=== PATIENT | male | born 1965 | race Caucasian/White ===

== ENCOUNTER 2020-08-19 10:16 | Emergency (ER) | payer OTHER, SELFPAY ==
[2020-08-19] VITALS (13 sets, daily range): BP systolic 120–136; BP diastolic 73–102; PULSE 68–82; RESP 10–24; TEMP 37.2; O2SAT 93–100
--- NOTE | ~2020-08-19 | XR_ITS ---
EXAMINATION: XR chest 1V portable DATE: 08/19/2020 11:35 INDICATION: Chest pain. Syncope. TECHNIQUE: A single frontal view of the chest was obtained. COMPARISON: Chest single view 07/16/2009 FINDINGS: The chest demonstrates clear lungs without pneumonia, pleural effusion, or pneumothorax. Th e heart size is normal. IMPRESSION: 1. No acute cardiopulmonary disease. Reviewed, dictated and finalized at location A. ESSING MACHINE OPERATOR
--- NOTE | 2020-08-19 10:48 | ECG_ITS ---
Measurements Intervals [place] Rate: 73 P: 39 ID: [id number] QRS: -53 QRSD: 97 T: 50 QT: 371 QTc: 410 Interpretive Statements SINUS RHYTHM INCOMPLETE RIGHT BUNDLE BRANCH BLOCK LEFT ANTERIOR FASCICULAR BLOCK BASELINE WANDER- V1-V6 ABNORMAL ECG Electronically Signed On 08-19-2020 11:34:43 TRACK AND FIELD COACH by Mandeep Patel D.O.
[2020-08-19 10:58] LABS: Basophils Percent Auto 0.6 % (0.2-1.2); Eosinophils Absolute Auto 0.1 K/mm3 (0-0.3); Eosinophils Percent Auto 1.3 % (0-4.4); Hematocrit 51.7 % (42.0-52.0); Hemoglobin 17.5 g/dL (14.0-18.0); Immature Granulocyte Absolute 0.01 K/mm3 (0.00-0.031); Immature Granulocyte Percent A 0.2 % (0-0.5); Lymphocytes Absolute Auto 1.44 K/mm3 (0.9-3.2); Lymphocytes Percent Auto 30.4 % (18.3-44.2); Mean Corpuscular HGB Conc 33.8 g/dl (32-36); Mean Corpuscular Hemoglobin 28.9 pg (26-34); Mean Corpuscular Volume 85.5 fl (80-100); Mean Platelet Volume 10.6 fl (7.4-10.4); Monocytes Absolute Auto 0.6 K/mm3 (0.1-0.6); Neutrophils Absolute Auto 2.6 K/mm3 (1.3-6.7); Neutrophils Percent Auto 55.5 % (45.5-73.1); Platelet Count Result 152 k/mm3 (150-375); Red Blood Count 6.05 M/mm3 (4.6-6.20); Red Cell Distribution Width 13.5 % (11.5-14.5); White Blood Count 4.7 K/mm3 (4.5-10.0)
[2020-08-19 11:08] LABS: INR 0.9; Partial Thromboplastin Time 26.8 SECONDS (22.3-36.8); Prothrombin Time 13.1 Seconds (11.1-14.7)
[2020-08-19 12:16] LABS: Anion Gap 7 mmol/L (8-16); Blood Urea Nitrogen 20 mg/dL (9-20); Calcium 9.4 mg/dL (8.4-10.2); Carbon Dioxide 29 mmol/L (22-30); Chloride 101 mmol/L (98-107); Estimated CRCL calculation 87 ml/min; Estimated Glomerular Filt Rate > 60; Glucose 153 mg/dL (75-110); Potassium 3.7 mmol/L (3.4-5.0); Sodium 137 mmol/L (137-145)
[2020-08-19 12:28] LABS: Troponin I < 0.012 ng/mL (0.000-0.034)
[2020-08-19 13:05] LABS: D Dimer 0.36 ug/mL (<0.48)
[2020-08-19 13:08] LABS: Alveolar/Arterial O2 Gradient 22.5 mmHg; Base Excess ABG 0.3 mEq/l (+/-2.0); Fractional Inspired Oxygen 21 %; HCO3 ABG 22.8 mEq/l (22.0-26.0); Oxygen Content ABG 22.8 %vol (16.0-22.0); Oxygen Saturation ABG 97.4 % (95.0-100.0); PCO2 ABG 31.7 mmHg (35.0-45.0); PO2 ABG 89.3 mmHg (80.0-100.0); PO2 FiO2 Ratio Arterial Blood 4.25 %; Total Hemoglobin 16.9 g/dL (12.0-18.0); pH ABG 7.475 (7.350-7.450)
[2020-08-19 13:09] LABS: Device ROOM AIR; Modified Allen's Test Pass; Site Drawn RIGHT RADIAL
[2020-08-19 13:14] LABS: Lactate Dehydrogenase 355 U/L (313-618)
--- NOTE | 2020-08-19 13:51 | ED.DIZZY ---
HPI - Dizziness General Chief Complaint: Syncope Stated Complaint: COVID +, syncope Time Seen by Provider: 08/19/20 12:17 Source: patient Mode of arrival: ambulatory Limitations: no limitations History of Present Illness HPI Narrative: 54-year-old male In typical good health and takes no chronic medications His mom was staying with him and was diagnosed with Covid last week and is hospitalized currently He was casted Saturday well asymptomatic, began having symptoms Saturday (3 days ago), and on Saturday was informed that his Covid was positive Symptoms include poor appetite aches a mild cough and loss of taste, he has not had a high fever or severe shortness of breath On he had a dizzy spell in the shower and banged the side of his face on the shower wall His PCP advised him today to be checked out in the hospital He has not had any further of these dizzy spells Related Data Allergies Allergy/AdvReac Type Severity Reaction Status Date / Time No Known Allergies Verified 08/19/20 10:58 Review of Systems Review of Systems: All systems reviewed & are unremarkable except as noted in HPI and below Constitutional: Constitutional: Denies chills, Reports fatigue, Denies fever(s), Denies headache(s) and Reports weakness Eyes: Eyes: Reports no additional eye complaints and Denies change in vision ENT: Denies headache(s), Denies epistaxis, Denies nasal congestion and Denies sore throat Comments: Loss of taste Cardiovascular: Cardiovascular: Denies chest pain, Denies leg edema, Denies palpitations and Denies dyspnea Respiratory: Respiratory: Reports cough, Denies dyspnea and Denies wheezing Gastrointestinal: Gastrointestinal: Denies abdominal pain, Denies diarrhea, Denies nausea and Denies vomiting Comments: Poor appetite Genitourinary: Genitourinary: Denies hematuria, Denies dysuria and Denies urinary frequency Musculoskeletal: Musculoskeletal: Reports myalgias, Denies deformity, Denies arthralgias, Denies joint swelling, Denies muscle weakness and Denies numbness Integumentary/Breasts: Skin/Breast: Denies rash and Denies wounds Neurologic: Denies headache(s), Denies focal weakness, Denies numbness and Denies weakness Psychiatric: Psychiatric: Reports no additional psychiatric complaints Endocrine: Endocrine: Denies fatigue and Denies palpitations Hematologic/Lymphatic: Hematologic/Lymphatic: Denies easy bleeding and Denies easy bruising Allergic/Immunologic: Allergic/Immunologic: Denies wheezing PMFSH Family History Family History (Updated 06/04/17 @ 16:45 by DOCTOR UNKNOWN) Grandparent Diabetes mellitus Family history of lung cancer Social History Social History Smoking status: Former smoker Smoking end date: 07/22/94 Alcohol intake: current Gender identity (if verbalized by the patient): Male Exam Const: General: no acute distress, well developed and awake Nutritional Appearance: well nourished Orientation/consciousness: patient oriented x3 (alert) Limitations: no limitations HENMT: Head: normocephalic and atraumatic Ears: external ears normal General nose exam: No nasal discharge present and no epistaxis Face and sinus: face symmetric Other: Minor abrasions on the left side of his face Eyes: Conjunctivae: conjunctivae normal Sclera: sclerae normal EOM: EOMs intact bilaterally Neck: Neck: normal visual inspection, supple and no JVD Chest: Chest palpation & inspection: deferred Resp: Effort & Inspection: normal respiratory effort Auscultation: clear to auscultation bilaterally, no rales, no rhonchi, no wheezes and other (BS =) Cardio: Rate: regular rate Rhythm: regular rhythm Heart sounds: no gallops and no murmurs GI: Inspection: normal to inspection GI Palp: Yes Soft to palpation and No Tenderness to palpation present (GI) Back/Spine/Pelvis: Back: no CVA tenderness Thoracic/Lumbar Spine: thoracic and lumbar spine normal to inspection Skin: General skin e
[2020-08-19 14:21] LABS: Troponin I < 0.012 ng/mL (0.000-0.034)
== END 2020-08-19 14:11 | disposition home or self-care (01) ==
PROVIDERS: General Practice; Emergency Provider Emergency Medicine; PCP Student in an Organized Health Care Education/Training Program
DX: U07.1 COVID-19 (principal); R55 Syncope and collapse; Z87.891 Personal history of nicotine dependence; I45.2 Bifascicular block
CPT/HCPCS: 36415; 36600; 71045; 80048; 82728; 82805; 83615; 83735; 84484; 85025; 85380; 85610; 85730; 93005; 99284

== ENCOUNTER 2020-09-28 06:14 | Inpatient (IN) | payer OTHER, SELFPAY ==
[2020-09-28] VITALS (24 sets, daily range): BP systolic 104–157; BP diastolic 63–100; PULSE 57–71; RESP 11–30; TEMP 36.4–37.1; O2SAT 97–100; BMI 32.2
--- NOTE | 2020-09-28 06:29 | ECG_ITS ---
Measurements Intervals [place] Rate: 66 P: 61 [place]: 154 QRS: -34 QRSD: 85 T: 3 QT: 381 QTc: 402 Interpretive Statements SINUS RHYTHM LEFT AXIS DEVIATION DELAYED PRECORDIAL R/S TRANSITION ANTERIOR ST ELEVATION MYOCARDIAL INJURY- ACUTE HIGH LATERAL ST ELEVATION MYOCARDIAL INJURY- ACUTE BASELINE ARTIFACT- II, III, AVF ABNORMAL ECG Electronically Signed On 09-28-2020 8:12:26 PLYWOOD MATCHER by Mandeep Patel D.O.
--- NOTE | 2020-09-28 06:29 | PC.NURSE ---
aspirin 324 mg @ 626. nitro 0.4 mg @ 628
--- NOTE | 2020-09-28 06:35 | PC.NURSE ---
2nd nitro 0.4mg @ 0635, heparin 4000 mg ivp @ 0636
--- NOTE | 2020-09-28 06:38 | ED.CHESTPAIN ---
HPI - Chest Pain General Chief Complaint: Chest Pain Stated Complaint: chest pain Time Seen by Provider: 09/28/20 06:31 History of Present Illness HPI narrative: Severe crushing substernal chest pain since about midnight. Associated with SOB and right arm tingling. He has never had this pain before. He denies any medical problems and takes no medications. Triage EKG shows a STEMI. Related Data Allergies Allergy/AdvReac Type Severity Reaction Status Date / Time No Known Allergies Verified 09/28/20 07:01 Review of Systems Review of Systems: ROS unobtainable: Yes unobtainable due to medical condition Constitutional: Constitutional: Denies fever(s) Cardiovascular: Cardiovascular: Reports chest pain and Reports radiating jaw, neck or arm pain Respiratory: Respiratory: Reports dyspnea Gastrointestinal: Gastrointestinal: Denies abdominal pain Musculoskeletal: Musculoskeletal: Denies back pain [facility] Family History Family History (Updated 06/04/17 @ 16:45 by DOCTOR UNKNOWN) Grandparent Diabetes mellitus Family history of lung cancer Social History Social History Smoking status: Former smoker Smoking end date: 07/22/94 Alcohol intake: current Gender identity (if verbalized by the patient): Male Exam Const: General: alert and diaphoretic Orientation/consciousness: patient oriented x3 Other: Moderate distress HENMT: Head: normal to inspection Neck: Neck: normal visual inspection Resp: Effort & Inspection: tachypneic Auscultation: clear to auscultation bilaterally Cardio: Rate: regular rate Rhythm: regular rhythm GI: GI Palp: Yes Soft to palpation and No Tenderness to palpation present (GI) Skin: General skin exam: normal color Neuro: General: patient oriented x3 and moves all extremities Speech: normal speech Extrem: General: no edema Course Vital Signs Vital signs: Vital Signs Pulse Rate 65 09/28/20 06:20 Respiratory Rate 30 H 09/28/20 06:20 Blood Pressure 151/82 H 09/28/20 06:20 Pulse Oximetry 100 09/28/20 06:20 Pulse Rate 58 L 09/28/20 06:58 Respiratory Rate 14 09/28/20 06:58 Blood Pressure 109/73 09/28/20 06:58 Pulse Oximetry 100 09/28/20 06:58 MDM - Chest Pain Differential Diagnosis Differential diagnosis: Likely st elevation myocardial infarction Medical Records Data Attestation: I reviewed the patient's medical records. Lab Data Attestation: I reviewed the patient's lab results. Result diagrams: 09/28/20 06:45 09/28/20 06:45 ECG Data EKG #1: ECG completion date: 09/28/20 ECG completion time: 06:29 Ischemic changes: acute STEMI EKG Interpretation: normal rate, sinus rhythm, ST elevation and normal QRS Critical Care Time Critical Care Time Critical Care Time: Yes Total Critical Care Time: 30 Discharge Plan Discharge Clinical Impression: ST elevation (STEMI) myocardial infarction Qualifiers: Involved coronary artery: unspecified coronary artery Qualified Code(s): I21.3 - ST elevation (STEMI) myocardial infarction of unspecified site Patient Disposition: Still a Patient Condition: Critical
--- NOTE | 2020-09-28 06:47 | PC.NURSE ---
pt is pain free s/p 3 nitro o.4 mg
[2020-09-28 06:54] LABS: Basophils Absolute Auto 0.1 K/mm3 (0.0-0.1); Basophils Percent Auto 0.6 % (0.2-1.2); Eosinophils Percent Auto 0.2 % (0-4.4); Hematocrit 47.2 % (42.0-52.0); Hemoglobin 15.7 g/dL (14.0-18.0); Immature Granulocyte Absolute 0.08 K/mm3 (0.00-0.031); Immature Granulocyte Percent A 0.6 % (0-0.5); Lymphocytes Absolute Auto 1.94 K/mm3 (0.9-3.2); Lymphocytes Percent Auto 13.5 % (18.3-44.2); Mean Corpuscular HGB Conc 33.3 g/dl (32-36); Mean Corpuscular Hemoglobin 29.5 pg (26-34); Mean Corpuscular Volume 88.6 fl (80-100); Monocytes Absolute Auto 0.7 K/mm3 (0.1-0.6); Monocytes Percent Auto 4.9 % (2.6-8.5); Neutrophils Absolute Auto 11.5 K/mm3 (1.3-6.7); Neutrophils Percent Auto 80.2 % (45.5-73.1); Platelet Count Result 200 k/mm3 (150-375); Red Blood Count 5.33 M/mm3 (4.6-6.20); Red Cell Distribution Width 14.3 % (11.5-14.5); White Blood Count 14.3 K/mm3 (4.5-10.0)
--- NOTE | 2020-09-28 06:55 | PC.NURSE ---
metoproioi 25 mg on hold per verbal by milton hurtado, r/t v.s. p-60 r-18 bp- 129/73
--- NOTE | 2020-09-28 06:58 | PC.NURSE ---
awaiting photographic laboratory technician.
[2020-09-28 07:01] LABS: INR 0.9; Partial Thromboplastin Time 25.8 SECONDS (22.3-36.8); Prothrombin Time 12.9 Seconds (11.1-14.7)
[2020-09-28 07:03] LABS: Alanine Aminotransferase 32 U/L (4-50); Albumin Level 4.7 g/dL (3.5-5.1); Alkaline Phosphatase 46 U/L (38-126); Anion Gap 10 mmol/L (8-16); Aspartate Amino Transferase 32 U/L (17-59); Bilirubin,Total 0.5 mg/dL (0.2-1.3); Blood Urea Nitrogen 30 mg/dL (9-20); Calcium 9.7 mg/dL (8.4-10.2); Carbon Dioxide 22 mmol/L (22-30); Chloride 105 mmol/L (98-107); Cholesterol 222 mg/dL (0-200); Estimated CRCL calculation 109 ml/min; Estimated Glomerular Filt Rate > 60; Glucose 162 mg/dL (75-110); HDL Direct 52 mg/dL; Sodium 137 mmol/L (137-145); Triglycerides 96 mg/dL (<150)
[2020-09-28] MEDS: TICAGRELOR 90 MG TABLET 180 MG PO (07:07)
--- NOTE | 2020-09-28 07:08 | PC.NURSE ---
pt to analytical lab analyst via analytical lab analyst rn ,s
[2020-09-28 07:14] LABS: LDL Cholesterol Direct 139 mg/dL
[2020-09-28 07:16] LABS: Troponin I 0.137 ng/mL (0.000-0.034)
--- NOTE | 2020-09-28 08:08 | ECG_ITS ---
Measurements Intervals [place] Rate: 63 P: 63 [place]: 152 QRS: -4 QRSD: 91 T: 63 QT: 376 QTc: 386 Interpretive Statements SINUS RHYTHM NORMAL ECG Electronically Signed On 09-28-2020 9:31:59 SALES CLERK by Mandeep Patel D.O.
--- NOTE | 2020-09-28 08:15 | WPDCARDPROC ---
Cardiac Cath Procedure Note Date of procedure:: 09/28/20 Performing physician:: Chuck Horne MD Indication:: acute anterior wall infarction Brief clinical history:: this is a 54-year-old man with no previous history of heart disease presented this morning with his chest pain that began at home a short time ago. He was having some arm paresthesias and numbness for several days prior to this presentation in the emergency department his ECG was diagnostic of acute anterior wall current of injury STEMI protocol was activated and he was brought emergently to the cardiac catheterization lab in that setting. Procedure Procedure performed:: Emergency coronary angiography left ventriculography emergency percutaneous revascularization of the LAD Sedation/Medication given:: fentanyl 50 mg Versed 2 mg case start time 719 case end time 8:04 a.m. sedation provided by Kadie Bay RN, trained observer Access site:: right femoral artery Estimated blood loss:: 30-40 cc Procedure note:: patient was brought to the cardiac catheterization lab in the postabsorptive state where the right femoral triangle was prepared and draped usual fashion. Anesthesia provided with 1% lidocaine infiltrated locally. Using the modified Seldinger technique a 6 [place]an sheath was placed in. After this I used a 6 [place]an CLS 3.5 guiding catheter to engage and inject the left coronary artery. After reviewing the angiograms PCI of the LAD was recommended and carried out as detailed below. Prior to PCI the patient received a bolus and infusion of intravenous Angiomax for procedural anticoagulation. He had a ready received aspirin and a loading dose of Brilinta in the emergency department. following completion of PCI of the LAD the guiding catheter was removed and a 5 [place]an JR4 diagnostic catheter was used to engage and inject the right coronary artery. Following this a 5 [place]an angled pigtail catheter was used to place into the left ventricle, measured left ventricular hemodynamics and injected COURTNEY projection. Following this the procedure was terminated. The sheath was sutured into position was taken to the ICU for post MA/PCI recovery. Patient was in stable condition with no evidence of any procedural complications and no sign of groin hematoma. Findings:: Hemodynamics: Central aortic pressure is 120/68 left ventricle 120/11 end-diastolic pressure of 16 there is systolic gradient on pullback across the aortic valve. Left ventricle: The LV is normal in size the anterior wall is markedly hypodynamic but not akinetic the global ejection fraction is visually estimated to be at 40%. Mitral valve appears to be competent. The left main coronary artery is large caliber and widely patent the left anterior descending is a large caliber vessel extending down to the apex the LAD has a long area of proximal disease which starts with mild stenosis proximally then subtotal 99% stenosis near a 1st diagonal branch and then another subtotal 99% lesion in the midportion of the artery at the 2nd diagonal branch. There is no antegrade flow in the LAD distal to this at the start of the procedure. Circumflex is a large caliber vessel giving rise to the marginal branch is the circumflex has minimal luminal irregularities but no significant lesions are seen. Right coronary artery is large caliber and dominant to the posterior circulation. The right coronary artery has a proximal complex high-grade stenosis in the 1st portion of the vessel representing about 90% stenosis this is a complex lesion angiographically with an ulcerated appearance. Intervention: The LAD was wired using a 0.014 corporate pilot 150 coronary guidewire placed into the LAD apex after steering through both high-grade subtotal proximal lesions that are detailed above. After this I used a 2.5 x 20 mm emerge balloon to pre dilate the high-grade lesions at nominal pressures. Following this the more distal
--- NOTE | 2020-09-28 08:27 | PM.IMHP ---
H&P: HPI History of Present Illness Date/Time: 09/28/20 08:27 Chief Complaint: chest pain Narrative: Valdemar Gonzalez is a 54 year old male without any previous cardiac history who presents this morning with chest pain and ECG in the emergency room shows obvious acute anterior wall current of injury. History is very truncated as he is being prepared for emergency angiography a STEMI was declared in this setting. He states that he has had some intermittent paresthesias and some numbness in the arms for several days prior to presentation. Patient was told by his PCP in the past that he had borderline diabetes and with lifestyle and diet modification this has improved. He has never been informed of dyslipidemia or hypertension. Review of Systems Review of Systems: Narrative: No time to obtain a review of systems during this emergency ROS unobtainable: Yes unobtainable due to medical condition [facility] Family History Family History (Updated 06/04/17 @ 16:45 by DOCTOR UNKNOWN) Grandparent Diabetes mellitus Family history of lung cancer Social History Social History Smoking status: Former smoker Smoking end date: 07/22/94 Alcohol intake: current Gender identity (if verbalized by the patient): Male Meds Home Medications and Allergies Home Medications Medication Instructions Recorded Confirmed Type albuterol sulfate 4 inh INHALATION QID PRN #1 ea 08/19/20 Rx Allergies Allergy/AdvReac Type Severity Reaction Status Date / Time No Known Allergies Verified 09/28/20 07:01 Vital Signs Vital Signs - 24 hr 09/28/20 06:20 09/28/20 06:32 09/28/20 06:46 Pulse Rate 65 71 57 L Respiratory Rate 30 H 20 14 Blood Pressure 151/82 H 157/100 H 129/73 Pulse Oximetry 100 100 100 09/28/20 06:58 Pulse Rate 58 L Respiratory Rate 14 Blood Pressure 109/73 Pulse Oximetry 100 Exam Const: General: in distress and uncomfortable HENMT: Mouth: Yes moist mucous membranes Eyes: Sclera: sclerae normal Pupils: Equal, round and reactive pupils present Neck: Neck: no JVD Resp: Effort & Inspection: normal respiratory effort Auscultation: clear to auscultation bilaterally Cardio: Rate: regular rate Rhythm: regular rhythm Other: no murmur no gallop GI: GI Palp: Yes Soft to palpation Auscultation: normal bowel sounds Skin: General skin exam: normal color Neuro: Cognition (Neuro): normal cognition Extrem: General: normal to inspection H&P: Results Labs Labs: Short CBC 09/28/20 Range/Units 06:45 WBC 14.3 H (4.5-10.0) K/mm3 Hgb 15.7 (14.0-18.0) g/dL Hct 47.2 (42.0-52.0) % Plt Count 200 (150-375) k/mm3 BMP 09/28/20 06:45 Sodium 137 Potassium 4.0 Chloride 105 Carbon Dioxide 22 BUN 30 H D Creatinine 0.80 Glucose 162 H Calcium 9.7 Cardiac Enzymes 09/28/20 Range/Units 06:45 Troponin I 0.137 H* (0.000-0.034) ng/mL Liver Function 09/28/20 Range/Units 06:45 Total Bilirubin 0.5 (0.2-1.3) mg/dL AST 32 (17-59) U/L ALT 32 (4-50) U/L Alkaline Phosphatase 46 (38-126) U/L Albumin 4.7 (3.5-5.1) g/dL Assessment and Plan Additional Plan 54-year-old man with: History of borderline diabetes but no other overt cardiac history presenting this morning with chest pain and ECG evidence indicating acute anterior wall injury. Emergency angiography will now be performed and revascularization recommended based on those findings. Chuck Horne MD [facility]
--- NOTE | 2020-09-28 08:35 | ADMGEN ---
This patient, Valdemar Gonzalez, was admitted to Intensive Care Unit-8. Patient/family oriented to hospital policies and general routines including ID bracelet, bed and alarms, visiting hours, pain management, procedures, bathroom and other care routines, personal items, smoking policy, room service/diet, and visiting hours. Information on how to activate the Rapid Response Team has been discussed. Patient/Family are encouraged to report perceived risks to care and to ask questions if they do not understand what they are told or what they should do.
[2020-09-28] MEDS: SODIUM CHLORIDE 0.9% IV 1,000 ML 125 ML IV CONT (09:02)
--- NOTE | 2020-09-28 09:25 | WPDCNINT ---
Assessment and Plan Assessment and plan (1) ST elevation (STEMI) myocardial infarction: Qualifiers: Involved coronary artery: unspecified coronary artery Qualified Code(s): I21.3 - ST elevation (STEMI) myocardial infarction of unspecified site Code(s): I21.3 - ST elevation (STEMI) myocardial infarction of unspecified site Status: Acute Assessment and Plan: Patient presented with chest pain to the ER along with paresthesias and numbness to the arms a few days prior to admission In the ER EKG showed acute anterior wall MT. Patient was taken to the slab lifting supervisor for coronary angiogram status post PTCA/PCI ADAN x4 to the LAD, EF of 40%. Patient also has a high-grade complex stenosis of the proximal right coronary artery. -cardiology following the patient closely -continue aspirin, Brilinta, lisinopril, metoprolol, rosuvastatin (2) Hyperlipidemia: Code(s): E78.5 - Hyperlipidemia, unspecified Status: Acute Assessment and Plan: Continue statin as above Additional Plan Discussed with patient and his at bedside and updated them with his condition and plan of care. I answered all questions Code status: Full code Care time spent: 41 minutes This dictation may have been done utilizing a voice recognition system. Attempts have been made to correct errors. However, there may be uncorrected grammatical, spelling, and recognition errors present. Due to a high probability of clinically significant, life threatening deterioration, the patient required my highest level of preparedness to intervene emergently and I personally spent this critical care time directly and personally managing the patient. This critical care time included obtaining a history; examining the patient; pulse oximetry; ordering and review of studies; arranging urgent treatment with development of a management plan; evaluation of patient's response to treatment; frequent reassessment; and discussions with other providers. It was exclusive of separately billable procedures and treating other patients and teaching time. Please see Assessment and Plan section and the rest of the note for further information on patient assessment and treatment Director Of Casino Consult Note Consult date: 09/28/20 Time Seen: 08:55 Reason for consult: STEMI, chest pain status post PTCA/PCI with ADAN x4 to LAD, EF of 40% HPI: Valdemar Gonzalez is a 54 year old male with past medical history of borderline diabetes with lifestyle and diet modification, no previous cardiac history presented to the ED on 09/28/2020 with complains of chest pain. Patient has been having paresthesias and numbness in his arms for several days prior to presentation. In the ER EKG showed acute anterior wall MT. Patient was taken to the slab lifting supervisor for coronary angiogram status post PTCA/PCI ADAN x4 to the LAD, EF of 40%. Patient also has a high-grade complex stenosis of the proximal right coronary artery. Post procedure patient was transferred to the ICU for further management Patient seen and examined in the ICU upon arrival, patient states he feels much better, denies any chest pain, shortness of breath abdominal pain, nausea, vomiting, paresthesias or numbness in the arms. Hemodynamically stable. Patient denies any alcohol, tobacco or illicit drug use. Review of Systems Review of Systems: All systems reviewed & are unremarkable except as noted in HPI and below PMFSH Family History Family History Grandparent Diabetes mellitus Family history of lung cancer Acute myocardial infarction Social History Social History Smoking status: Former smoker Tobacco type: cigarettes Smoking end date: 07/22/94 Additional smoking assessment comments: 1 ppd quit 20 years ago Alcohol intake: never Substance use: never Gender identity (if verbalized by the patient): Male Spiritual care concerns: Yes Meds Home Medications an
[2020-09-28 09:41] LABS: Cholesterol 175 mg/dL (0-200); HDL Direct 41 mg/dL; Triglycerides 67 mg/dL (<150)
[2020-09-28 09:52] LABS: LDL Cholesterol Direct 117 mg/dL
[2020-09-28] MEDS: ROSUVASTATIN 10 MG TABLET 20 MG PO (09:57)
[2020-09-28] MEDS: METOPROLOL SUCCINATE EXT REL 50 MG TABCR PO (09:57)
[2020-09-28] MEDS: lisinopriL 5 MG TABLET PO (09:57)
[2020-09-28 10:39] LABS: Troponin I 0.861 ng/mL (0.000-0.034)
[2020-09-28] MEDS: TICAGRELOR 90 MG TABLET PO (21:20)
[2020-09-29] VITALS (14 sets, daily range): BP systolic 108–136; BP diastolic 54–93; PULSE 59–76; RESP 16–23; TEMP 36.4–36.9; O2SAT 97–100
--- NOTE | 2020-09-29 05:11 | ECG_ITS ---
Measurements Intervals [place] Rate: 65 P: 55 [place]: 147 QRS: -3 QRSD: 97 T: 113 QT: 434 QTc: 451 Interpretive Statements SINUS RHYTHM INCOMPLETE RIGHT BUNDLE BRANCH BLOCK CANNOT RULE OUT SEPTAL INFARCT, AGE INDETERMINATE T WAVE ABNORMALITY IN ANTEROLAT/HIGH LAT LEADS- CONSIDER ISCHEMIA ABNORMAL ECG Electronically Signed On 09-29-2020 9:12:21 IRON PELLET TESTER by Mandeep Patel D.O.
[2020-09-29 07:48] LABS: Basophils Absolute Auto 0.1 K/mm3 (0.0-0.1); Basophils Percent Auto 0.5 % (0.2-1.2); Eosinophils Absolute Auto 0.2 K/mm3 (0-0.3); Eosinophils Percent Auto 1.8 % (0-4.4); Hematocrit 42.3 % (42.0-52.0); Immature Granulocyte Absolute 0.02 K/mm3 (0.00-0.031); Immature Granulocyte Percent A 0.2 % (0-0.5); Lymphocytes Absolute Auto 1.82 K/mm3 (0.9-3.2); Lymphocytes Percent Auto 19.8 % (18.3-44.2); Mean Corpuscular HGB Conc 33.1 g/dl (32-36); Mean Corpuscular Volume 87.8 fl (80-100); Mean Platelet Volume 10.7 fl (7.4-10.4); Monocytes Absolute Auto 0.8 K/mm3 (0.1-0.6); Monocytes Percent Auto 8.1 % (2.6-8.5); Neutrophils Absolute Auto 6.4 K/mm3 (1.3-6.7); Neutrophils Percent Auto 69.6 % (45.5-73.1); Platelet Count Result 152 k/mm3 (150-375); Red Blood Count 4.82 M/mm3 (4.6-6.20); Red Cell Distribution Width 14.5 % (11.5-14.5); White Blood Count 9.2 K/mm3 (4.5-10.0)
[2020-09-29 08:03] LABS: Anion Gap 4 mmol/L (8-16); Blood Urea Nitrogen 17 mg/dL (9-20); Calcium 8.6 mg/dL (8.4-10.2); Carbon Dioxide 26 mmol/L (22-30); Chloride 107 mmol/L (98-107); Estimated CRCL calculation 108 ml/min; Estimated Glomerular Filt Rate > 60; Glucose 114 mg/dL (75-110); Sodium 137 mmol/L (137-145)
[2020-09-29] MEDS: METOPROLOL SUCCINATE EXT REL 50 MG TABCR PO (08:38)
[2020-09-29] MEDS: TICAGRELOR 90 MG TABLET PO ×2 (08:38→19:42)
[2020-09-29] MEDS: ASPIRIN 81 MG CHEWABLE TABLET PO (08:38)
[2020-09-29] MEDS: ROSUVASTATIN 10 MG TABLET 20 MG PO (08:38)
[2020-09-29] MEDS: lisinopriL 5 MG TABLET PO (08:38)
--- NOTE | 2020-09-29 09:42 | WPDINTPN ---
Progress Note: A&P Assessment and Plan (1) ST elevation (STEMI) myocardial infarction: Qualifiers: Involved coronary artery: unspecified coronary artery Qualified Code(s): I21.3 - ST elevation (STEMI) myocardial infarction of unspecified site Code(s): I21.3 - ST elevation (STEMI) myocardial infarction of unspecified site Status: Acute Assessment and Plan: Patient presented with chest pain to the ER along with paresthesias and numbness to the arms a few days prior to admission In the ER EKG showed acute anterior wall [place]. Patient was taken to the packing house laborer for coronary angiogram status post PTCA/PCI ADAN x4 to the LAD, EF of 40%. Patient also has a high-grade complex stenosis of the proximal right coronary artery. -cardiology following the patient closely -PVCs overnight and 3 on beat of V-tach while reviewing telemetry it -continue aspirin, Brilinta, lisinopril, metoprolol, rosuvastatin (2) Hyperlipidemia: Code(s): E78.5 - Hyperlipidemia, unspecified Status: Acute Assessment and Plan: Continue statin as above Additional Plan Discussed with patient updated with his condition and plan of care. He is aware that he may be out of the ICU today. Code status: Full code Care time spent: 31 minutes This dictation may have been done utilizing a voice recognition system. Attempts have been made to correct errors. However, there may be uncorrected grammatical, spelling, and recognition errors present. Due to a high probability of clinically significant, life threatening deterioration, the patient required my highest level of preparedness to intervene emergently and I personally spent this critical care time directly and personally managing the patient. This critical care time included obtaining a history; examining the patient; pulse oximetry; ordering and review of studies; arranging urgent treatment with development of a management plan; evaluation of patient's response to treatment; frequent reassessment; and discussions with other providers. It was exclusive of separately billable procedures and treating other patients and teaching time. Please see Assessment and Plan section and the rest of the note for further information on patient assessment and treatment Subjective Date/time seen: 09/29/20 09:42 Interval history: Reason for consult: STEMI, chest pain status post PTCA/PCI with ADAN x4 to LAD, EF of 40% 09/29/2020: Patient seen examined this morning, denies any chest pain, shortness of breath, nausea, vomiting, diaphoresis. Patient states he is feels much better. PVCs overnight with a 3 beat run of V-tach on that review of telemetry. Patient otherwise asymptomatic. Tolerating diet, hemodynamically stable, on room air with good O2 sats. Output has been added Review of Systems Review of Systems: All systems reviewed & are unremarkable except as noted in HPI and below Exam Const: General: comfortable and no acute distress HENMT: Mouth: Yes moist mucous membranes Eyes: Sclera: sclerae normal Pupils: Equal, round and reactive pupils present Neck: Neck: supple Resp: Effort & Inspection: normal respiratory effort Auscultation: clear to auscultation bilaterally Cardio: Rate: regular rate Rhythm: regular rhythm GI: Inspection: non-distended GI Palp: Yes Soft to palpation and No Tenderness to palpation present (GI) Auscultation: normal bowel sounds : Other: Deferred Urinary Catheter: Urinary Catheter: urine clear Skin: General skin exam: normal color and no rashes or lesions noted Neuro: Cranial nerves: Yes Equal, round and reactive pupils present Other: Patient is awake, alert, oriented x3, nonfocal Extrem: General: normal to inspection, no edema and no pedal edema Other: Right groin site without any evidence of ecchymosis or hematoma. Normal pedal pulses bilaterally Psych: Mental Status: mental status grossly normal Affect: normal affect Objective Data Vital S
--- NOTE | 2020-09-29 10:45 | PM.PNCARD ---
Progress Note: A&P Assessment and Plan (1) ST elevation (STEMI) myocardial infarction: Qualifiers: Involved coronary artery: unspecified coronary artery Qualified Code(s): I21.3 - ST elevation (STEMI) myocardial infarction of unspecified site Code(s): I21.3 - ST elevation (STEMI) myocardial infarction of unspecified site Status: Acute Assessment and Plan: Continue dual anti-platelet therapy, beta-gerald, BAILEY-inhibitor, statin Plan for outpatient staged intervention of the proximal RCA (2) Hyperlipidemia: Code(s): E78.5 - Hyperlipidemia, unspecified Status: Acute Assessment and Plan: Will increase rosuvastatin at 20 mg daily (3) Borderline diabetes: Code(s): R73.03 - Prediabetes Status: Acute (4) Ischemic cardiomyopathy: Code(s): I25.5 - Ischemic cardiomyopathy Status: Acute Assessment and Plan: Hopefully will improve further following complete revascularization and with improvement stunned myocardium Subjective Date/time seen: 09/29/20 10:45 Interval history: Reason for consult: STEMI, chest pain status post PTCA/PCI with ADAN x4 to LAD, EF of 40% 09/29/2020: Patient seen examined this morning, denies any chest pain, shortness of breath, nausea, vomiting, diaphoresis. Patient states he is feels much better. PVCs overnight with a 3 beat run of V-tach on that review of telemetry. Patient otherwise asymptomatic. Tolerating diet, hemodynamically stable, on room air with good O2 sats. Output has been added Review of Systems Review of Systems: All systems reviewed & are unremarkable except as noted in HPI and below Constitutional: Constitutional: Denies weakness Eyes: Eyes: Denies blurry vision ENT: Reports Normal hearing present Cardiovascular: Cardiovascular: Denies chest pain Respiratory: Respiratory: Denies dyspnea Gastrointestinal: Gastrointestinal: Denies abdominal pain Genitourinary: Genitourinary: Denies dysuria Musculoskeletal: Musculoskeletal: Denies neck pain Integumentary/Breasts: Skin/Breast: Denies dry skin Neurologic: Denies headache(s) Psychiatric: Psychiatric: Denies anxiety Endocrine: Endocrine: Denies change in body appearance Hematologic/Lymphatic: Hematologic/Lymphatic: Denies easy bleeding Allergic/Immunologic: Allergic/Immunologic: Denies GI upset with certain foods Exam Narrative: Exam Narrative: Alert oriented. Appears stated age Const: General: comfortable and no acute distress HENID: Mouth: Yes moist mucous membranes Eyes: Sclera: sclerae normal Neck: Neck: no JVD Resp: Effort & Inspection: normal respiratory effort Auscultation: clear to auscultation bilaterally Cardio: Rate: regular rate Rhythm: regular rhythm GI: Auscultation: normal bowel sounds Skin: General skin exam: normal color Other: Right groin is free of hematoma ecchymosis or bruit Neuro: Cranial nerves: Yes Equal, round and reactive pupils present Cognition (Neuro): normal cognition Speech: normal speech Extrem: General: normal to inspection Psych: Affect: normal affect Objective Data Vital Signs Vital Signs: Vital Signs - 24 hr 09/28/20 12:00 09/28/20 12:35 09/28/20 12:50 Temperature Pulse Rate 61 61 62 Respiratory Rate 11 L 11 L 12 Blood Pressure 108/77 109/76 106/69 Pulse Oximetry 99 99 98 09/28/20 13:20 09/28/20 13:50 09/28/20 14:00 Temperature Pulse Rate 61 63 60 Respiratory Rate 19 17 Blood Pressure 115/70 111/78 Pulse Oximetry 98 99 09/28/20 14:20 09/28/20 14:50 09/28/20 15:50 Temperature Pulse Rate 63 65 64 Respiratory Rate 18 19 16 Blood Pressure 107/68 112/71 114/72 Pulse Oximetry 98 97 97 09/28/20 16:00 09/28/20 16:50 09/28/20 17:50 Temperature 37.1 C Pulse Rate 64 66 65 Respiratory Rate 17 18 15 Blood Pressure 111/72 104/70 110/63 Pulse Oximetry 97 98 97 09/28/20 18:00 09/28/20 20:00 09/28/20 22:00 Temperature 36.4 C L Pulse Rat
[2020-09-30] VITALS (10 sets, daily range): BP systolic 108–126; BP diastolic 74–84; PULSE 56–65; RESP 14–20; TEMP 36.3–36.9; O2SAT 99
[2020-09-30 07:55] LABS: Hematocrit 45.7 % (42.0-52.0); Hemoglobin 15.6 g/dL (14.0-18.0); Mean Corpuscular HGB Conc 34.1 g/dl (32-36); Mean Corpuscular Hemoglobin 29.7 pg (26-34); Mean Corpuscular Volume 86.9 fl (80-100); Mean Platelet Volume 10.7 fl (7.4-10.4); Platelet Count Result 160 k/mm3 (150-375); Red Blood Count 5.26 M/mm3 (4.6-6.20); White Blood Count 9.1 K/mm3 (4.5-10.0)
[2020-09-30] MEDS: ROSUVASTATIN 10 MG TABLET 20 MG PO (08:08)
[2020-09-30] MEDS: lisinopriL 5 MG TABLET PO (08:09)
[2020-09-30] MEDS: METOPROLOL SUCCINATE EXT REL 50 MG TABCR PO (08:09)
[2020-09-30] MEDS: ASPIRIN 81 MG CHEWABLE TABLET PO (08:09)
[2020-09-30] MEDS: TICAGRELOR 90 MG TABLET PO (08:09)
[2020-09-30 08:10] LABS: Alanine Aminotransferase 37 U/L (4-50); Albumin Level 4.1 g/dL (3.5-5.1); Alkaline Phosphatase 34 U/L (38-126); Anion Gap 7 mmol/L (8-16); Aspartate Amino Transferase 41 U/L (17-59); Bilirubin,Total 0.6 mg/dL (0.2-1.3); Blood Urea Nitrogen 18 mg/dL (9-20); Calcium 9.3 mg/dL (8.4-10.2); Carbon Dioxide 27 mmol/L (22-30); Chloride 104 mmol/L (98-107); Estimated CRCL calculation 94 ml/min; Estimated Glomerular Filt Rate > 60; Glucose 103 mg/dL (75-110); Potassium 3.9 mmol/L (3.4-5.0); Sodium 138 mmol/L (137-145)
--- NOTE | 2020-09-30 14:06 | PM.DS ---
DS: Admitting Diagnosis Admitting Diagnosis Admitting Diagnosis: Anterior wall ST-elevation IN DS: Discharge Diagnosis Discharge Diagnosis (1) ST elevation (STEMI) myocardial infarction: Qualifiers: Involved coronary artery: unspecified coronary artery Qualified Code(s): I21.3 - ST elevation (STEMI) myocardial infarction of unspecified site Code(s): I21.3 - ST elevation (STEMI) myocardial infarction of unspecified site Status: Acute DS: Summary Hospital Course Reason for hospitalization: Anterior wall infarction Hospital Course: This is a 54-year-old man without previous history of cardiac problems who presented to the hospital with acute chest pain. ECG demonstrated acute injury to the anterolateral wall and he was brought emergently to the cardiac cath lab radiological technologist. Patient underwent emergency angiography identifying high-grade subtotal stenosis of the LAD proximally and in the midportion. Between nose high-grade lesions the LAD was moderately diffusely disease. He underwent angiographically successful but somewhat complex intervention because of the long area of the vessel that had to be treated with stents of different sizes. He received 4 drug-eluting stents from the midportion back to the proximal/near ostial segment of the LAD with a nice anatomical result. A small proximal small to medium-sized diagonal branch was jailed by that intervention. The patient rapidly became asymptomatic following revascularization. He has anterior wall hypokinesia overall ejection fraction appears to be about 40%. His right coronary artery also was found to have a high-grade proximal complex stenosis of 80-90% and does require revascularization in a staged fashion. Today the patient appears to be a good candidate for discharge he is asymptomatic ambulating there is no complaints he is being discharged with plans to follow up in the office and then to schedule elective PCI on his RCA. Status at Discharge Functional status at discharge: independent ambulation Time Spent with Patient Time attestation: Total time spent providing and/or coordinating discharge services: Exam Const: General: comfortable and no acute distress HENMT: Mouth: Yes moist mucous membranes Eyes: Sclera: sclerae normal Pupils: Equal, round and reactive pupils present Neck: Neck: supple and no JVD Thyroid: thyroid normal Resp: Effort & Inspection: normal respiratory effort Auscultation: clear to auscultation bilaterally Cardio: Rate: regular rate Rhythm: regular rhythm Other: No murmur no gallop GI: GI Palp: Yes Soft to palpation Auscultation: normal bowel sounds Skin: General skin exam: normal color Extrem: General: normal to inspection DS: Data Data Completed and Pending Labs on day of discharge: Labs from last 24 hours 09/30/20 09/30/20 07:50 07:50 WBC 9.1 RBC 5.26 Hgb 15.6 Hct 45.7 MCV 86.9 MCH 29.7 MCHC 34.1 RDW 14.0 Plt Count 160 MPV 10.7 H Sodium 138 Potassium 3.9 Chloride 104 Carbon Dioxide 27 Anion Gap 7 L BUN 18 Creatinine 0.80 Estim Creat Clear Calc 94 Estimated GFR > 60 Glucose 103 Calcium 9.3 Magnesium 2.0 Total Bilirubin 0.6 AST 41 ALT 37 Alkaline Phosphatase 34 L Total Protein 7.0 Albumin 4.1 Discharge Plan Discharge Attending physician on discharge: Chuck Horne Consulting providers: Iesha Ramirez Discharging Clinician: Chuck Horne Anticipated Discharge Date/Time: 09/30/20 14:10 Patient Disposition: Home, Self-Care Activity: other - see discharge instructions Diet: heart healthy Wound Care Instructions: other - see discharge instructions Discharge Instructions: Activity Restrictions: No lifting, pushing or pulling more than 10 pounds for 1 week. No strenuous exercise or activity (including sexual activity) until you are released to do so. May shower but no tub baths or swimming pool for 1 wee
== END 2020-09-30 15:45 | disposition home or self-care (01) | DRG 246 ==
LOC: ANHED 06:42 → ANHICU 06:44
PROVIDERS: Internal Medicine Cardiovascular Disease; Admitting Provider Specialist; Emergency Provider Emergency Medicine; PCP Student in an Organized Health Care Education/Training Program; Visit Provider Specialist
PROC: 4A023N7 Measurement of Cardiac Sampling and Pressure, Left Heart, Percutaneous Approach (ICD-10-PCS; CPT 93452; principal; 2020-09-28 07:00)
PROC: 027037Z Dilation of Coronary Artery, One Artery with Four or More Drug-eluting Intraluminal Devices, Percutaneous Approach (ICD-10-PCS; 2020-09-28 07:00)
DX: I21.02 ST elevation (STEMI) myocardial infarction involving left anterior descending coronary artery (principal); E78.5 Hyperlipidemia, unspecified; R73.03 Prediabetes; I25.5 Ischemic cardiomyopathy; Z23 Encounter for immunization; Z95.5 Presence of coronary angioplasty implant and graft; Z87.891 Personal history of nicotine dependence
CPT/HCPCS: 36415; 80048; 80053; 80061; 83735; 84484; 85025; 85027; 85610; 85730; 86850; 86900; 86901; 90471; 90653; 93005; 93458; 99285; A9270; C1725; C1769; C1874; C1887; C1894; C9606; G0008; J0583; J1644; J2250; J3010; J7030; J7040

== ENCOUNTER 2020-10-11 18:01 | Inpatient (IN) | payer OTHER, SELFPAY ==
--- NOTE | ~2020-10-11 | US_ITS ---
EXAMINATION: US carotid duplex BI DATE: 10/12/2020 09:56 INDICATION: Acute seizure TECHNIQUE: Grayscale, color Doppler, and pulsed Doppler images of the cervical carotid arteries were obtained. The degree of vessel stenosis is placed in one of the following categories: normal, <50%, 5 0-69%, >=70% but less than near-occlusion, near-occlusion, or total occlusion. Note that percent sten osis relative to normal distal artery lumen diameter is indirectly measured from velocity measurement s as described by Adal, et al. Radiology 2003; 229:340-346. Notes: Normal: Peak systolic velocity <125 centimeters/sec and no plaque <50%. Peak systolic velocity <125 ( EDV <40; ICA/CCA PSV ratio <2.0; used these factors only a tandem lesions or low cardiac output or co ntralateral disease) 50-69 %: PSV 125-230 (EDV 40-100; ratio 2-4) >= 70% but less than near occlusion: PSV greater than 230 (EDV > 100; ratio> 4.0) Near Occlusion: PSV that is variable; markedly narrowed lumen Occlusion: Absent flow on color/spectral Doppler and no lumen on stevens scale. COMPARISON: None. FINDINGS: RIGHT: The right common carotid artery (CCA) peak systolic velocity (PSV) is 81 cm/s. The right internal car otid artery (ICA) PSV is 69 cm/s. The right ICA end-diastolic velocity (EDV) is 22 cm/s. The right IC A/CCA PSV ratio is 0.8. The external carotid artery (ECA) PSV is 96 cm/s. There is antegrade flow in the right vertebral artery. LEFT: The left CCA PSV is 100 cm/s. The left ICA PSV is 79 cm/s. The left ICA EDV is 24 cm/s. The left ICA/ CCA PSV ratio is 0.8. The ECA PSV is 98 cm/s. There is antegrade flow in the left vertebral artery. IMPRESSION: 1. Less than 50% stenosis in the right internal carotid artery by sonographic criteria. 2. Less than 50% stenosis in the left internal carotid artery by sonographic criteria. Reviewed, dictated and finalized at location A. IMPRESSION: 1. Less than 50% stenosis in the right internal carotid artery by sonographic zhane emerson. 2. Less than 50% stenosis in the left internal carotid artery by sonographic alexandra kaur.
--- NOTE | ~2020-10-11 | CT_ITS ---
EXAMINATION: CT brain wo con EXAM DATE: 10/11/2020 19:42 INDICATION: Syncope. TECHNIQUE: Spiral CT of the head was performed without contrast. Axial, coronal and sagittal images were reviewed. The dose-length product (DLP) for this examination was 605.33 mGy-cm. The exposure w as tailored according to patient size, and iterative reconstruction (ASIR) was used as additional dos e reduction technique. There is no prior study for comparison. FINDINGS: There is no acute intraparenchymal hemorrhage. No evidence of intraparenchymal brain mass lesion. No evidence of acute infarction. There is no mass effect or midline shift. The ventricles are normal in size. There are no extra-axial collections. There are no acute calvarial fractures. T he orbits are unremarkable. Soft tissue is unremarkable. The visualized sinuses and mastoid air matt ls are well aerated. IMPRESSION: 1. Unremarkable head CT examination. Reviewed, dictated and finalized at location A.
--- NOTE | 2020-10-11 18:02 | ECG_ITS ---
Measurements Intervals Universal Rate: 55 P: 64 IA: 148 QRS: 58 QRSD: 93 T: 99 QT: 463 QTc: 447 Interpretive Statements SINUS BRADYCARDIA CANNOT RULE OUT SEPTAL INFARCT, AGE INDETERMINATE T WAVE ABNORMALITY IN ANT/HIGH LAT LEADS- CONSIDER ISCHEMIA ABNORMAL ECG Electronically Signed On 10-11-2020 19:43:39 CDT by Mandeep Patel D.O.
[2020-10-11 18:19] VITALS: BP 73/39; PULSE 55; RESP 18; TEMP 36.4; O2SAT 100
[2020-10-11 18:22] VITALS: BP 89/54; PULSE 55; RESP 15; O2SAT 100
[2020-10-11 18:31] LABS: Glucose Point of Care 162 (65-105)
--- NOTE | 2020-10-11 18:35 | PC.NURSE ---
unable to get orthostatic VS at this time due to pts low blood pressure lying.
[2020-10-11 18:38] LABS: Basophils Absolute Auto 0.1 K/mm3 (0.0-0.1); Basophils Percent Auto 0.9 % (0.2-1.2); Eosinophils Absolute Auto 0.2 K/mm3 (0-0.3); Eosinophils Percent Auto 2.3 % (0-4.4); Hematocrit 40.7 % (42.0-52.0); Hemoglobin 13.7 g/dL (14.0-18.0); Immature Granulocyte Absolute 0.02 K/mm3 (0.00-0.031); Immature Granulocyte Percent A 0.2 % (0-0.5); Lymphocytes Absolute Auto 1.48 K/mm3 (0.9-3.2); Lymphocytes Percent Auto 16.4 % (18.3-44.2); Mean Corpuscular HGB Conc 33.7 g/dl (32-36); Mean Corpuscular Hemoglobin 29.4 pg (26-34); Mean Corpuscular Volume 87.3 fl (80-100); Mean Platelet Volume 10.7 fl (7.4-10.4); Monocytes Absolute Auto 0.7 K/mm3 (0.1-0.6); Neutrophils Absolute Auto 6.5 K/mm3 (1.3-6.7); Neutrophils Percent Auto 72.2 % (45.5-73.1); Platelet Count Result 220 k/mm3 (150-375); Red Blood Count 4.66 M/mm3 (4.6-6.20); Red Cell Distribution Width 13.2 % (11.5-14.5)
[2020-10-11] MEDS: SODIUM CHLORIDE 0.9% IV 1,000 ML 999 ML IV CONT ×3 (18:38→20:53)
[2020-10-11 18:56] LABS: Anion Gap 4 mmol/L (8-16); Blood Urea Nitrogen 19 mg/dL (9-20); Calcium 8.7 mg/dL (8.4-10.2); Carbon Dioxide 29 mmol/L (22-30); Chloride 103 mmol/L (98-107); Estimated CRCL calculation 78 ml/min; Estimated Glomerular Filt Rate > 60; Glucose 183 mg/dL (75-110); Sodium 136 mmol/L (137-145)
[2020-10-11 19:03] LABS: Troponin I < 0.012 ng/mL (0.000-0.034)
--- NOTE | 2020-10-11 19:03 | ED.GENADULT ---
HPI - General Adult General Chief complaint: Syncope Stated complaint: dizzy, syncope Time Seen by Provider: 10/11/20 18:39 Source: patient History of Present Illness HPI narrative: Patient is a 54 y/o male complaining of dizziness and passing out approximately 1 hour ago. He states that he was with friend in a car. He states that his friend told him he was passed out for 2 minutes. He had some shaking episode and his friend thought he was possibly having a seizure. He has no recollection of what happened. He still feels dizzy. He denies any chest pain or SOB. Of note, he had cardiac cath with stent for acute AK approximately 2 weeks ago. Related Data Allergies Allergy/AdvReac Type Severity Reaction Status Date / Time No Known Allergies Verified 10/11/20 22:37 Review of Systems Constitutional: Constitutional: Denies chills, Denies fever(s), Denies headache(s) and Denies weakness Eyes: Eyes: Denies blurry vision ENT: Denies headache(s) and Denies neck pain Cardiovascular: Cardiovascular: Denies chest pain and Denies dyspnea Respiratory: Respiratory: Denies cough and Denies dyspnea Gastrointestinal: Gastrointestinal: Denies abdominal pain, Denies diarrhea, Denies nausea and Denies vomiting Genitourinary: Genitourinary: Denies hematuria and Denies dysuria Musculoskeletal: Musculoskeletal: Denies back pain and Denies neck pain Neurologic: Reports dizziness, Reports syncope, Denies headache(s) and Denies weakness PMFSH Past Medical History Medical History Coronary artery disease Hyperlipidemia Hypertension Surgical History Surgical History Stented coronary artery Family History Family History Grandparent Diabetes mellitus Family history of lung cancer Acute myocardial infarction Social History Social History Smoking packs per day: 1 Smoking cigarettes per day: 20.0 Smoking status: Former smoker Tobacco type: cigarettes Additional smoking assessment comments: 1 ppd quit 25 years ago Alcohol intake: former Drinks per week: 18 Substance use: never Gender identity (if verbalized by the patient): Male Spiritual care concerns: No Exam Const: General: no acute distress and well developed Orientation/consciousness: oriented to person, oriented to place, oriented to time and patient oriented x3 HENMT: Head: normocephalic Ears: external ears normal General nose exam: Normal external nose present Eyes: General: appearance normal, both eyes and all related structures Conjunctivae: conjunctivae normal Neck: Neck: normal visual inspection and full ROM Chest: Chest palpation & inspection: normal inspection of the chest and no tenderness Resp: Effort & Inspection: normal respiratory effort Auscultation: clear to auscultation bilaterally Cardio: Rate: regular rate Rhythm: regular rhythm GI: GI Palp: No abdominal tenderness and Yes Soft to palpation Skin: General skin exam: normal color and turgor normal Neuro: General: oriented to person, oriented to place, oriented to time and patient oriented x3 Cognition (Neuro): normal cognition Extrem: General: normal to inspection, full ROM and no pedal edema Psych: Appearance: grossly normal Mental Status: mental status grossly normal Affect: normal affect Course Consultations Consultation #1: Discussed with Dr. Escobar, who agrees to admit. Date: 10/11/20 Time: 20:10 Vital Signs Vital signs: Vital Signs Temperature 36.4 C L 10/11/20 18:19 Pulse Rate 55 L 10/11/20 18:19 Respiratory Rate 18 10/11/20 18:19 Blood Pressure 73/39 L 10/11/20 18:19 Pulse Oximetry 100 10/11/20 18:19 Temperature 36.6 C 10/15/20 08:00 Pulse Rate 65 10/15/20 10:00 Respiratory Rate 14 10/15/20 08:00 Blood Pressure 127/68 10/15/20 08
--- NOTE | 2020-10-11 19:29 | PC.NURSE ---
Pt presents to ED with for syncopal episode. Pt denies falling and hitting head with syncope. Pt resting on cart in supine position and has complaints of persistent dizziness. Pt noted with hypotension; EDMD ordered liter of 0.9 NS that is now infusing. Pt placed in trendelenburg position due to persistent hypotension. remains at bedside. Pt and updated on poc; all questions and concerns addressed. Call button and personal items within reach. Advised to press call button for assistance.
[2020-10-11 19:33] VITALS: BP 90/57; PULSE 66; RESP 16; O2SAT 98
--- NOTE | 2020-10-11 19:35 | PC.NURSE ---
Pt to CT via cart.
--- NOTE | 2020-10-11 21:18 | PC.NURSE ---
SBAR faxed. Pt remains in trendelenburg position due to persistent hypotension. remains at bedside. Pt is otherwise stable and denies chest pain, sob and all other discomfort at this time. Advised to press call button for assistance. Provided ice water per ok from EDMD.
[2020-10-11 21:20] VITALS: BP 102/53; PULSE 81; RESP 17; O2SAT 99
--- NOTE | 2020-10-11 21:41 | PC.NURSE ---
Pt provided a urinal. Pt is now removed from trendelenburg position is is tolerating well and BP is now 106/95. Pt noted to now be in bigeminal rhythm; EDMD notified and no orders given at this time. remains at bedside. Pt aware of poc and all questions and concerns addressed.
--- NOTE | 2020-10-11 21:53 | PC.NURSE ---
Report called to Ashley. Glynn to send pt to floor.
--- NOTE | 2020-10-11 22:33 | ADMGEN ---
This patient, Valdemar Gonzalez, was admitted to Medical Room 344-01. Patient/family oriented to hospital policies and general routines including ID bracelet, bed and alarms, visiting hours, pain management, procedures, bathroom and other care routines, personal items, smoking policy, room service/diet, and visiting hours. Information on how to activate the Rapid Response Team has been discussed. Patient/Family are encouraged to report perceived risks to care and to ask questions if they do not understand what they are told or what they should do.
[2020-10-11 22:49] VITALS: BMI 31.4
[2020-10-11 22:50] VITALS: BP 116/62; PULSE 91; RESP 17; TEMP 36.3; O2SAT 99
[2020-10-11 23:41] LABS: Add Urine Microscopic? YES; Appearance Urine Clear (Clear); Bilirubin Urine Negative (Negative); Blood Urine Negative (Negative); Color Urine Straw (Yellow); Glucose Urine UA 1+ mg/dL (Negative); Ketones Urine Negative (Negative); Leukocyte Esterase Ur Negative LEU/UL (Negative); Mucus Urine Rare /lpf; Nitrate Urine Negative (Negative); Protein Urine Negative (Negative); Specific Grav Ur 1.005 (1.001-1.035); Urobilinogen Urine Negative mg/dL (<2.0); WBC Urine 0-3 /hpf
--- NOTE | 2020-10-11 23:41 | PM.IMHP ---
H&P: HPI History of Present Illness Date/Time: 10/11/20 23:41 Chief Complaint: Unresponsive Event Narrative: This is a pleasant 54-year-old male with known history of coronary artery disease status post recent stent placement, hypertension, hyperlipidemia who presented to the hospital after having an unresponsive episode today in his friend's car. Apparently the patient had just finished eating lunch with his friend and they were driving when suddenly the patient felt strange and told his friend that he was not feeling well. Before becoming unresponsive the patient did feel somewhat short of breath although he denies any chest pain. The patient passed out for approximately 2 minutes and during that time his friend witnessed him having generalized shaking. The patient did lose urine and completely wet his pants. He denies any tongue biting. The patient has never had an acute seizure before. The patient was confused for approximately 5 minutes following the episode before he regained his senses. He denies any type of chest discomfort or palpitations before during or after the episode today. The patient also denies any recent head trauma. He was evaluated emergency room today and found to be hypotensive. ER provider gave him 3 L of IV fluids which have helped with his blood pressure. The patient has been taking his medications as prescribed. He denies stopping any medications recently. On further questioning he also denies any fever, chills, nausea, vomiting, chest pain, sore throat, coughing, significant shortness of breath, abdominal pain, dysuria, hematuria, diarrhea, rectal bleeding, or lower extremity swelling. On my encounter with the patient tonight he is completely asymptomatic and tells me he feels like he is back to his normal self. No other complaints at this time. Brain CT was performed in the ER was unremarkable for any acute pathology. Review of Systems Review of Systems: All systems reviewed & are unremarkable except as noted in HPI and below PMFSH Past Medical History Medical History (Updated 10/11/20 @ 23:55 by Holland Escobar MD) Coronary artery disease Hyperlipidemia Hypertension Surgical History Surgical History (Updated 10/11/20 @ 23:49 by Holland Escobar MD) Stented coronary artery Family History Family History Grandparent Diabetes mellitus Family history of lung cancer Acute myocardial infarction Social History Social History (Updated 10/11/20 @ 22:50 by Kenyetta Aguirre RN) Smoking packs per day: 1 Smoking cigarettes per day: 20.0 Smoking status: Former smoker Tobacco type: cigarettes Additional smoking assessment comments: 1 ppd quit 25 years ago Alcohol intake: former Drinks per week: 18 Substance use: never Living arrangements: with family Gender identity (if verbalized by the patient): Male Spiritual care concerns: No Meds Home Medications and Allergies Home Medications Medication Instructions Recorded Confirmed Type aspirin [Children's Aspirin] 81 mg PO DAILY@0800 #30 tablet 09/30/20 10/11/20 Rx lisinopril 5 mg PO DAILY #30 tablet 09/30/20 10/11/20 Rx metoprolol succinate 50 mg PO QAM #30 tablet 09/30/20 10/11/20 Rx nitroglycerin [Nitrostat] 0.4 mg SUBLINGUAL Q5MIN PRN #30 09/30/20 10/11/20 Rx tablet rosuvastatin [Crestor] 20 mg PO DAILY #30 tablet 09/30/20 10/11/20 Rx ticagrelor [Brilinta] 90 mg PO Q12HR #60 tablet 09/30/20 10/11/20 Rx Allergies Allergy/AdvReac Type Severity Reaction Status Date / Time No Known Allergies Verified 10/11/20 22:37 Vital Signs Vital Signs - 24 hr 10/11/20 18:19 10/11/20 18:22 10/11/20 19:33 Temperature 36.4 C L Pulse Rate 55 L 55 L 66 Respiratory Rate 18 15 16 Blood Pressure 73/39 L 89/54 L 90/57 L Pulse Oximetry 100 100 98 10/11/20 21:20 10/11/20 22:50 Temperature 36.3 C L Pulse Rate 81 91 Respiratory Rate 17 17 Blood Pressure 1
[2020-10-11 23:53] LABS: Amphetamine Screen Urine Negative (Negative); Barbiturate Screen Urine Negative (Negative); Benzodiazepines Screen Urine Negative (Negative); Cannabinoid Screen Urine Positive (Negative); Cocaine Screen Urine Negative (Negative); Methadone Screen Urine Negative (Negative); Opiate Screen Urine Negative (Negative); Phencyclidine Screen Urine Negative (Negative)
[2020-10-12] VITALS (10 sets, daily range): BP systolic 101–123; BP diastolic 64–74; PULSE 56–90; RESP 14–17; TEMP 36.1–36.6; O2SAT 98–100
--- NOTE | 2020-10-12 | ECHO_ITS ---
Patient Info Name: Valdemar Gonzalez Age: 54 years : 1965 Gender: Male Ht: 69 in Wt: 212 lbs BSA: 2.19 m2 HR: 68 bpm BP: 114 / 72 mmHg Heart Rhythm: Sinus Rhythm Technical Quality: Good Exam Date: 10/12/2020 1:49 PM Exam Location: [facility] Pulmonary Patient Status: Outpatient Admit Date: 10/11/2020 Staff Ordering Physician: Chuck Horne MD Program Review Director: Camden Conde RDCS, RT Attending Provider: Jacklyn Hong PA-C Referring Physician: Ozzie PIERCE; Exam Type: CA echo limited w contrast Study Info Indications I21.29 - ST elevation (STEMI) myocardial infarction involving other sites Limited two-dimensional transthoracic echocardiogram is performed. Strain analysis performed. Contrast/Agitated Saline Contrast/Ag. Saline: Definity Amount: 1.00 ml Administered By: Iris Mcarthur RN Summary 1. Normal left ventricular size with mild concentric hypertrophy. No segmental wall motion abnormalities. The calculated ejection fraction is 60 7% and visually it appears good, 65-70%. Global longitudinal strain was normal at-18%. 2. Left atrial chamber dimension is mildly enlarged. 3. No pulmonary hypertension, estimated pulmonary arterial systolic pressure is 33 mmHg. 4. Dilated inferior vena cava with >50% collapse upon inspiration consistent with elevated right atrial pressure, 10 mmHg. 5. No significant valve disease. 6. Normal sinus rhythm with PVCs. Left Ventricle Left ventricular chamber dimension is normal. Left ventricular systolic function is normal, estimated at 65-70%. There is mildly increased left ventricular wall thickness. Left ventricular septal wall motion is normal. The left ventricular diastolic function is normal. Global longitudinal strain is normal at -18 %. Right Ventricle Right ventricular chamber dimension is normal. Right ventricular systolic function is normal. Left Atria Left atrial chamber dimension is mildly enlarged. Right Atria Right atrial chamber dimension is normal. Aortic Valve The aortic valve is trileaflet. There is no aortic valve sclerosis. There is no aortic valve stenosis. There is no aortic valve regurgitation. Pulmonic Valve The pulmonic valve is normal. There is no pulmonic valve stenosis. There is trace pulmonic regurgitation. Mitral Valve The mitral valve has normal leaflets. There is no mitral valve stenosis. There is trace mitral valve regurgitation. Tricuspid Valve The tricuspid valve leaflets are normal. There is no significant tricuspid valve stenosis. There is trace tricuspid valve regurgitation. No pulmonary hypertension, estimated pulmonary arterial systolic pressure is 33 mmHg. Pericardium/Pleural The pericardium appears normal. There is no pericardial effusion. Inferior Vena Cava Dilated inferior vena cava with >50% collapse upon inspiration consistent with elevated right atrial pressure, 10 mmHg. Aorta The aortic root size at the sinus of Valsalva is normal. The prox ascending aorta size is normal. Left Ventricular Outflow Tract Name Value Normal LVOT 2D LVOT Diameter 2.1 cm LVOT Doppler --
[2020-10-12] MEDS: TICAGRELOR 90 MG TABLET PO ×3 (00:06→20:23)
[2020-10-12 05:51] LABS: Basophils Absolute Auto 0.1 K/mm3 (0.0-0.1); Basophils Percent Auto 0.8 % (0.2-1.2); Eosinophils Absolute Auto 0.2 K/mm3 (0-0.3); Eosinophils Percent Auto 2.2 % (0-4.4); Hematocrit 37.3 % (42.0-52.0); Hemoglobin 12.4 g/dL (14.0-18.0); Immature Granulocyte Absolute 0.03 K/mm3 (0.00-0.031); Immature Granulocyte Percent A 0.3 % (0-0.5); Lymphocytes Absolute Auto 1.89 K/mm3 (0.9-3.2); Lymphocytes Percent Auto 18.9 % (18.3-44.2); Mean Corpuscular HGB Conc 33.2 g/dl (32-36); Mean Corpuscular Hemoglobin 29.1 pg (26-34); Mean Corpuscular Volume 87.6 fl (80-100); Mean Platelet Volume 10.6 fl (7.4-10.4); Monocytes Absolute Auto 0.8 K/mm3 (0.1-0.6); Monocytes Percent Auto 8.4 % (2.6-8.5); Neutrophils Percent Auto 69.4 % (45.5-73.1); Platelet Count Result 189 k/mm3 (150-375); Red Blood Count 4.26 M/mm3 (4.6-6.20); Red Cell Distribution Width 13.2 % (11.5-14.5)
[2020-10-12 06:05] LABS: Hemoglobin A1C 5.5 % (<5.7)
[2020-10-12 06:07] LABS: Anion Gap 4 mmol/L (8-16); Blood Urea Nitrogen 15 mg/dL (9-20); Calcium 8.4 mg/dL (8.4-10.2); Carbon Dioxide 26 mmol/L (22-30); Chloride 111 mmol/L (98-107); Estimated CRCL calculation 104 ml/min; Estimated Glomerular Filt Rate > 60; Glucose 135 mg/dL (75-110); Phosphorus 3.5 mg/dL (2.5-4.5); Potassium 3.7 mmol/L (3.4-5.0); Sodium 141 mmol/L (137-145)
[2020-10-12 06:50] LABS: Thyroid Stimulating Hormone Reflex 0.526 uIU/mL (0.465-4.68)
--- NOTE | 2020-10-12 09:13 | PM.CNCAR ---
Assessment and Plan Additional Plan 54-year-old man with: Syncopal event following recent anterior wall infarction that occurred a couple weeks ago. Patient certainly could have had symptomatic hypotension causing this with his blood pressure being as low is was recorded in the emergency room. obviously is at risk for ventricular arrhythmias were as well given his recent myocardial infarction. Thus far telemetry shows nothing significant in this regard. I am going to discontinue his BAILEY-inhibitor and resume his metoprolol at lower dose of 25 mg daily. I will obtain a limited echocardiogram today to assess his left ventricular systolic function. We will see how he does clinically on a lower dose of the beta-gerald and after reviewing the echocardiogram I will consider intervening on his right coronary artery lesion earlier than we were going to if it seems reasonable. Chuck Horne MD [facility] History of Present Illness History of Present Illness Consult date/time: 10/12/20 09:13 Reason For Visit: syncope, hypotension Narrative: This is a very pleasant 54-year-old man who I know from a recent admission here with an acute anterior wall myocardial infarction. He presented to [facility] about 2 weeks ago with chest and arm pain that began at home and was seen in the emergency room where his ECG demonstrated acute anterior wall current of injury. He was brought emergently to the cardiac catheterization lab where he was found to have a area of subtotal stenosis in his anterior descending with a relatively long area of disease that was treated with a series of 4 drug-eluting stents from mid portion back to the proximal portion of the vessel stents of increasing diameter. He had a good anatomical result and recovered from this procedure without any problems. Angiographically he was found to have a high-grade complex discrete stenosis in a large dominant right coronary artery and plan was following discharge to see him in the office and consider went to perform a staged intervention in this vessel. He was discharged on a standard regimen of dual anti-platelet therapy with aspirin and Brilinta as well as metoprolol lisinopril and rosuvastatin. He was previously not on any medical treatment for anything prior to his infarction. The patient was riding in an automobile with a friend yesterday they had gone into a restaurant to get some carry out pizza and while he was sitting in the passenger seat with the pizza boxes on his lap suddenly started to feel unwell with dimming of his vision and shortly after that he obviously lost consciousness his friend who is the tractor sweeper driver in the automobile provided the history that he was unresponsive for a minute or 2 and was experiencing what looked like some convulsive activity. He recovered from this he was brought home his became aware of the event and had him come to the emergency room where he was evaluated. In the emergency room he was found to be hypotensive and pale looking with a systolic blood pressure in the low 70s. He states that and EMT found his blood pressure to be in the 60s. I do not see that on the chart. In any event he was admitted for further observation and management after this event. His anti-platelet therapy and statin have been ordered his beta-gerald and BAILEY-inhibitor have not. On telemetry in the hospital he has normal sinus rhythm with normal AV conduction. His ECG shows changes of his recent infarction with some biphasic T-waves in the precordial leads there is no current of injury his troponin level was negative he is not having any chest pain. Review of Systems Constitutional: Constitutional: Reports no additional constitutional complaints Eyes: Eyes: Reports no additional eye complaints ENT: Reports system reviewed and no additional complaints, except as documented Cardiovascular: Cardiovascular: Reports as per HPI Respiratory: Respiratory: Reports no additional respira
[2020-10-12] MEDS: ROSUVASTATIN 10 MG TABLET 20 MG PO (09:15)
[2020-10-12] MEDS: ASPIRIN 81 MG CHEWABLE TABLET PO (09:15)
[2020-10-12] MEDS: METOPROLOL SUCCINATE EXT REL 25 MG TABCR PO (09:27)
--- NOTE | 2020-10-12 09:57 | WPDNEUROLOGY ---
Neurology EEG Report General Information Date of Study: 10/12/20 TEST eeg DIAGNOSIS seizure CONDITION OF RECORDING Awake drowsy and sleep EEG NUMBER [id number] CLINICAL HISTORY patient reported he was riding a car yesterday when he lost consciousness and was shaking all over subsequently he lost control of the bladder he does have a history of cardiac stent placement about 2 weeks ago. EEG DESCRIPTION Basic resting occipital frequency consists of large amount of well-organized medium voltage 8 to 10 hertz per second alpha admixed with low-voltage 15 to 18 hertz per second beta. During drowsiness low-voltage beta activity seen diffusely admixed with waxing and waning posterior alpha rhythm. Bilateral symmetrical sleep activity seen during sleep. Non paroxysmal. Nonfocal. Nonlateralizing. hyperventilation not done ,photic stimulation not done. IMPRESSION Normal record
[2020-10-12] MEDS: PERFLUTREN LIPID MICROSPHERES 1.5 ML VIAL DILUTED TO 10 ML TOTAL VOLUME IV PUSH (14:27)
--- NOTE | 2020-10-12 14:42 | WPDNEURCNPN ---
Assessment and Plan Additional Plan seizure most likely related to the hypotension, patient has never had seizures in the past,t EEG has been reviewed which is completely normal, for the time being management will be as such Consult date: 10/12/20 Time Seen: 12:30 HPI: Valdemar Gonzalez is a 54 year old male admitted to the hospital or the complaints of unresponsive event in addition on the ongoing history of 1. Coronary artery disease for which patient has undergone recent stent placement 2. Hypertension 3. Hyperlipidemia. Patient presented with the epi history of unresponsive episode in his friend's car when he had just finished eating lunch and they were driving as per the information available from the patient he felt strange and told his friend that he was not feeling well subsequently became unresponsive though he did become short of breath prior to that he was out for at least couple of minutes and the friend witnessed him having a generalized shaking with incontinence of urine but no tongue biting patient has never had any seizures he was reportedly confused for 5 minutes subsequent to the seizure episode but was not complaining of any unusual discomfort in the emergency room patient received the IV fluids by the time he was seen by the hospital he was completely asymptomatic CT scan in the emergency room was negative. patient does have ongoing history of as mentioned before coronary artery disease with hyperlipidemia hypertension, is a former smoker 20 cigarettes per day and quit 25 years ago, never substance abuser and former alcohol consumer. evaluation up until now includes negative carotid study and normal CT scan of the head, patient has been seen by the Cardiology and their notes have been reviewed and at present being observed for any cardiac event, EEG has already been done which is normal, patient is receiving the rosuvastatin 20 mg daily Brilinta 90 mg q.12 hours and metoprolol 25 mg daily Review of Systems Review of Systems: All systems reviewed & are unremarkable except as noted in HPI and below PMFSH Past Medical History Medical History Coronary artery disease Hyperlipidemia Hypertension Surgical History Surgical History Stented coronary artery Family History Family History Grandparent Diabetes mellitus Family history of lung cancer Acute myocardial infarction Social History Social History Smoking packs per day: 1 Smoking cigarettes per day: 20.0 Smoking status: Former smoker Tobacco type: cigarettes Additional smoking assessment comments: 1 ppd quit 25 years ago Alcohol intake: former Drinks per week: 18 Substance use: never Living arrangements: with family Gender identity (if verbalized by the patient): Male Spiritual care concerns: No Meds Home Medications and Allergies Home Medications Medication Instructions Recorded Confirmed Type aspirin [Children's Aspirin] 81 mg PO DAILY@0800 #30 tablet 09/30/20 10/11/20 Rx lisinopril 5 mg PO DAILY #30 tablet 09/30/20 10/11/20 Rx metoprolol succinate 50 mg PO QAM #30 tablet 09/30/20 10/11/20 Rx nitroglycerin [Nitrostat] 0.4 mg SUBLINGUAL Q5MIN PRN #30 09/30/20 10/11/20 Rx tablet rosuvastatin [Crestor] 20 mg PO DAILY #30 tablet 09/30/20 10/11/20 Rx ticagrelor [Brilinta] 90 mg PO Q12HR #60 tablet 09/30/20 10/11/20 Rx Allergies Allergy/AdvReac Type Severity Reaction Status Date / Time No Known Allergies Verified 10/11/20 22:37 Vital Signs Vital Signs - 24 hr 10/11/20 18:19 10/11/20 18:22 10/11/20 19:33 Temperature 36.4 C L Pulse Rate 55 L 55 L 66 Respiratory Rate 18 15 16 Blood Pressure 73/39 L 89/54 L 90/57 L Pulse Oximetry 100 100 98 10/11/20 21:20 10/11/20 22:50 10/12/20 00:00 Temperature 36.3 C L Pulse Rat
--- NOTE | 2020-10-12 15:46 | PM.IMPN ---
Progress Note: A&P Assessment and Plan (1) Seizure: Code(s): R56.9 - Unspecified convulsions Status: Acute Assessment and Plan: Acute seizure was likely secondary to hypotension which may have been caused by the patient's recent beta-gerald and cardiac medications that have been started since getting his stent placed. He has no prior seizure history. Electrolytes are WNL. CT brain unremarkable. EEG demonstrated no abnormalities. TSH is normal. Carotid doppler US demonstrates <50% stenosis of the ICA bilaterally. Appreciate neurology input. Dr. Troncoso does not recommend initiating anticonvulsant at this time. No driving for 3 months. No baths or swimming pools. He will need to follow-up with neurology. (2) Unresponsive episode: Code(s): R41.89 - Other symptoms and signs involving cognitive functions and awareness Status: Acute Assessment and Plan: [place] most likely secondary to seizure given associated history of urinary incontinence and generalized shaking with 5 minutes of confusion following the episode. Additional consideration includes syncope and cardiology was consulted given recent STEMI 2 weeks ago. Continue telemetry monitoring as patient is at risk for arrhythmia Echocardiogram ordered and pending Appreciate cardiology input (3) Arterial hypotension: Qualifiers: Hypotension type: unspecified hypotension type Qualified Code(s): I95.9 - Hypotension, unspecified Code(s): I95.9 - Hypotension, unspecified Status: Acute Assessment and Plan: Likely medication induced. He also reports recent diarrhea and may have had a bit of volume depletion from that as well. He has no evidence of acute infection. Blood pressure normalized with IV fluid boluses. Lisinopril held and metoprolol resumed at a lower dose Continue to monitor closely (4) Hypertension: Qualifiers: Hypertension type: unspecified Qualified Code(s): I10 - Essential (primary) hypertension Code(s): I10 - Essential (primary) hypertension Status: Chronic Assessment and Plan: Blood pressure was low on admission to the emergency department but normalized following 3 liter fluid bolus and has normalized today. Cardiology consulted for assistance with blood pressure and medication regimen and recommends to hold lisinopril and resume metoprolol succinate at a lower dose of 25mg Continue to monitor closely (5) Hyperlipidemia: Qualifiers: Hyperlipidemia type: unspecified Qualified Code(s): E78.5 - Hyperlipidemia, unspecified Code(s): E78.5 - Hyperlipidemia, unspecified Status: Chronic Assessment and Plan: LFTs were normal 3/12/21. Continue statin therapy (6) Coronary artery disease: Qualifiers: Associated angina: without angina Coronary Disease-Associated Artery/Lesion type: [place] artery [place] vs. transplanted heart: [place] heart Qualified Code(s): I25.10 - Atherosclerotic heart disease of [place] coronary artery without angina pectoris Code(s): I25.10 - Atherosclerotic heart disease of [place] coronary artery without angina pectoris Status: Chronic Assessment and Plan: With acute anterior wall NV s/p 4 ADAN to the LAD by Dr. Horne on 09/28/20. He has right coronary artery lesion with intervention planned in staged fashion. He is not having any chest pain. Troponin <0.012. EKG reviewed. Continue metoprolol, rosuvastatin, aspirin and ticagrelor. Cardiology consulted, appreciate cardiology input Repeat echocardiogram ordered and pending (7) Diarrhea: Code(s): R19.7 - Diarrhea, unspecified Status: Acute Assessment and Plan: Possibly due to diet changes. He denies bloody stool and mucus. He has no recent antibiotic use. He is afebrile and without leukocytosis. Add probiotic Check WBC smear Continue supportive care (8) NSVT (nonsustained ventr
[2020-10-12] MEDS: POTASSIUM CHLORIDE 20 MEQ TABLET 40 MEQ PO (16:56)
[2020-10-12] MEDS: SACCHAROMYCES BOULARDII 250 MG CAPSULE PO (16:56)
[2020-10-12] MEDS: ENOXAPARIN 40 MG/0.4 ML SYRINGE SUB-Q (20:23)
[2020-10-13] VITALS (10 sets, daily range): BP systolic 115–133; BP diastolic 63–78; PULSE 58–68; RESP 16–18; TEMP 36.2–37; O2SAT 99–100
[2020-10-13 06:22] LABS: Basophils Absolute Auto 0.1 K/mm3 (0.0-0.1); Basophils Percent Auto 1.2 % (0.2-1.2); Eosinophils Absolute Auto 0.3 K/mm3 (0-0.3); Eosinophils Percent Auto 3.5 % (0-4.4); Hematocrit 40.5 % (42.0-52.0); Hemoglobin 13.7 g/dL (14.0-18.0); Immature Granulocyte Absolute 0.01 K/mm3 (0.00-0.031); Immature Granulocyte Percent A 0.1 % (0-0.5); Lymphocytes Absolute Auto 2.09 K/mm3 (0.9-3.2); Lymphocytes Percent Auto 24.3 % (18.3-44.2); Mean Corpuscular HGB Conc 33.8 g/dl (32-36); Mean Corpuscular Hemoglobin 29.3 pg (26-34); Mean Corpuscular Volume 86.5 fl (80-100); Mean Platelet Volume 10.8 fl (7.4-10.4); Monocytes Absolute Auto 0.8 K/mm3 (0.1-0.6); Monocytes Percent Auto 8.8 % (2.6-8.5); Neutrophils Absolute Auto 5.3 K/mm3 (1.3-6.7); Neutrophils Percent Auto 62.1 % (45.5-73.1); Platelet Count Result 187 k/mm3 (150-375); Red Blood Count 4.68 M/mm3 (4.6-6.20); Red Cell Distribution Width 13.2 % (11.5-14.5); White Blood Count 8.6 K/mm3 (4.5-10.0)
[2020-10-13 06:56] LABS: Alanine Aminotransferase 13 U/L (4-50); Albumin Level 3.4 g/dL (3.5-5.1); Alkaline Phosphatase 31 U/L (38-126); Anion Gap 4 mmol/L (8-16); Aspartate Amino Transferase 17 U/L (17-59); Bilirubin,Total 0.2 mg/dL (0.2-1.3); Blood Urea Nitrogen 12 mg/dL (9-20); Carbon Dioxide 31 mmol/L (22-30); Chloride 106 mmol/L (98-107); Estimated CRCL calculation 104 ml/min; Estimated Glomerular Filt Rate > 60; Glucose 95 mg/dL (75-110); Magnesium 1.9 mg/dL (1.6-2.3); Potassium 4.3 mmol/L (3.4-5.0); Sodium 141 mmol/L (137-145)
[2020-10-13] MEDS: MAGNESIUM OXIDE 400 MG TABLET PO (09:56)
[2020-10-13] MEDS: SACCHAROMYCES BOULARDII 250 MG CAPSULE PO ×2 (09:57→17:45)
[2020-10-13] MEDS: METOPROLOL SUCCINATE EXT REL 25 MG TABCR PO (09:57)
[2020-10-13] MEDS: ROSUVASTATIN 10 MG TABLET 20 MG PO (09:57)
[2020-10-13] MEDS: ASPIRIN 81 MG CHEWABLE TABLET PO (09:57)
[2020-10-13] MEDS: TICAGRELOR 90 MG TABLET PO ×2 (09:57→21:06)
--- NOTE | 2020-10-13 13:38 | PM.PNCARD ---
Progress Note: A&P Assessment and Plan (1) Arterial hypotension: Qualifiers: Hypotension type: unspecified hypotension type Qualified Code(s): I95.9 - Hypotension, unspecified Code(s): I95.9 - Hypotension, unspecified Status: Acute Assessment and Plan: Pt appears to have had syncope and subsequent sz 2nd low BP, 2nd meds + diarrhea. Hypotension resolved w/ lowered dose meds. (2) Coronary artery disease: Qualifiers: Coronary Disease-Associated Artery/Lesion type: [place] artery [place] vs. transplanted heart: [place] heart Associated angina: without angina Qualified Code(s): I25.10 - Atherosclerotic heart disease of [place] coronary artery without angina pectoris Code(s): I25.10 - Atherosclerotic heart disease of [place] coronary artery without angina pectoris Status: Chronic Assessment and Plan: H/O CAD and recent VA. Echo showed normal LV fxn. Discussed w/ pt. Has residual somewhat complex RCA lesion for which Dr. Horne recommends stentin; can do it tmr. REviwed w/ pt; Pt desires to proceed tmr. Subjective Date/time seen: 10/13/20 13:38 Interval history: FU CAD, syncope Date of : Pt doing well, BP better on reduced meds, no syncope or dizziness but not out of bed yet. Review of Systems Review of Systems: Narrative: Wants to get out of bed Constitutional: Constitutional: Reports no additional constitutional complaints Eyes: Eyes: Reports no additional eye complaints ENT: Reports system reviewed and no additional complaints, except as documented Cardiovascular: Cardiovascular: Denies chest pain, Denies lightheadedness and Denies palpitations Respiratory: Respiratory: Denies dyspnea and Denies dyspnea on exertion Gastrointestinal: Gastrointestinal: Denies abdominal pain Musculoskeletal: Musculoskeletal: Reports no additional musculoskeletal complaints Neurologic: Reports system reviewed and no additional complaints, except as documented and Denies confusion Psychiatric: Psychiatric: Denies behavioral changes Exam Narrative: Exam Narrative: Very pleasant and appreciative middle-aged male NAD Const: General: comfortable and no acute distress HENMT: Mouth: Yes moist mucous membranes Eyes: EOM: EOMs intact bilaterally Neck: Neck: supple Resp: Effort & Inspection: normal respiratory effort Auscultation: clear to auscultation bilaterally Cardio: Rate: regular rate Rhythm: regular rhythm GI: GI Palp: Yes Soft to palpation and No Firmness to palpation present (GI) Skin: General skin exam: normal color and no rashes or lesions noted Neuro: Cognition (Neuro): normal cognition Speech: normal speech Motor exam (neuro): Normal motor muscle tone present throughout Extrem: General: no edema and no pedal edema Psych: Mental Status: mental status grossly normal Affect: normal affect Objective Data Vital Signs Vital Signs: Vital Signs - 24 hr 10/12/20 14:54 10/12/20 16:00 10/12/20 20:00 Temperature 97.0 F L 97.8 F Pulse Rate 62 58 L 62 Respiratory Rate 16 17 Blood Pressure 118/74 101/64 Pulse Oximetry 100 99 10/13/20 00:00 10/13/20 04:00 10/13/20 04:36 Temperature 97.2 F L 98.3 F Pulse Rate 61 60 60 Respiratory Rate 17 18 Blood Pressure 115/66 133/78 Pulse Oximetry 100 99 10/13/20 08:00 10/13/20 09:57 10/13/20 12:00 Temperature Pulse Rate 59 L 62 61 Respiratory Rate Blood Pressure Pulse Oximetry 10/13/20 13:25 Temperature 98.6 F Pulse Rate 68 Respiratory Rate 18 Blood Pressure 130/65 Pulse Oximetry 100 Intake/Output Intake/Output: Intake & Output 10/10/20 10/11/20 10/12/20 10/13/20 23:59 23:59 23:59 23:59 Intake Total 3000 2020 930 Output Total 3200 1300 Balance 6575 -7176 -939 Meds/Results Medications: Active Medications Generic Name Dose Route Start Last Admin Trade Name Freq PRN Reason Stop Dose Admin Acetaminophen 650 mg 10/11/20 23:58
--- NOTE | 2020-10-13 14:23 | PM.IMPN ---
Progress Note: A&P Assessment and Plan (1) Seizure: Code(s): R56.9 - Unspecified convulsions Status: Acute Assessment and Plan: Acute seizure was likely secondary to hypotension which may have been caused by the patient's recent beta-gerald and cardiac medications that have been started since getting his stent placed as well as possible volume depletion from diarrhea. He has no prior seizure history. Electrolytes are WNL. CT brain unremarkable. EEG demonstrated no abnormalities. TSH is normal. Carotid doppler US demonstrates <50% stenosis of the ICA bilaterally. Appreciate neurology input. Dr. Troncoso does not recommend initiating anticonvulsant at this time. No driving for 3 months. No baths or swimming pools. He will need to follow-up with neurology. (2) Unresponsive episode: Code(s): R41.89 - Other symptoms and signs involving cognitive functions and awareness Status: Acute Assessment and Plan: [place] most likely secondary to seizure given associated history of urinary incontinence and generalized shaking with 5 minutes of confusion following the episode. Additional consideration includes syncope and cardiology was consulted given recent STEMI 2 weeks ago. Echocardiogram demonstrates normal LV systolic function with EF 65-70%, mild left atrial enlargement, normal diastolic function, and no significant valve disease. Continue telemetry monitoring as patient is at risk for arrhythmia Echocardiogram ordered and pending Appreciate cardiology input (3) Arterial hypotension: Qualifiers: Hypotension type: unspecified hypotension type Qualified Code(s): I95.9 - Hypotension, unspecified Code(s): I95.9 - Hypotension, unspecified Status: Resolved Assessment and Plan: Resolved. Likely medication induced. He also reports recent diarrhea and may have had a bit of volume depletion from that as well. He has no evidence of acute infection. Blood pressure normalized with IV fluid boluses. Lisinopril held and metoprolol resumed at a lower dose Continue to monitor closely (4) Hypertension: Qualifiers: Hypertension type: unspecified Qualified Code(s): I10 - Essential (primary) hypertension Code(s): I10 - Essential (primary) hypertension Status: Chronic Assessment and Plan: Blood pressure was low on admission to the emergency department but normalized following 3 liter fluid bolus and has normalized. BP is stable with metoprolol dose of 25mg. Cardiology consulted for assistance with blood pressure and medication regimen and recommended to hold lisinopril and continue metoprolol succinate at a lower dose of 25mg Continue to monitor closely (5) Hyperlipidemia: Qualifiers: Hyperlipidemia type: unspecified Qualified Code(s): E78.5 - Hyperlipidemia, unspecified Code(s): E78.5 - Hyperlipidemia, unspecified Status: Chronic Assessment and Plan: LFTs were normal 09/30/20. Continue statin therapy (6) Coronary artery disease: Qualifiers: Coronary Disease-Associated Artery/Lesion type: [place] artery [place] vs. transplanted heart: [place] heart Associated angina: without angina Qualified Code(s): I25.10 - Atherosclerotic heart disease of [place] coronary artery without angina pectoris Code(s): I25.10 - Atherosclerotic heart disease of [place] coronary artery without angina pectoris Status: Chronic Assessment and Plan: With acute anterior wall [place] s/p 4 ADAN to the LAD by Dr. Horne on 09/28/20. Troponin <0.012. EKG reviewed. Echo reviewed. He is not having any chest pain. Continue metoprolol, rosuvastatin, aspirin and ticagrelor. Cardiology consulted, appreciate cardiology input Plan for intervention for RCA lesion tomorrow (7) Diarrhea: Code(s): R19.7 - Diarrhea, unspecified Status: Acute Assessment and Plan: Possibly due to diet change
[2020-10-13] MEDS: ENOXAPARIN 40 MG/0.4 ML SYRINGE SUB-Q (21:05)
[2020-10-14] VITALS (33 sets, daily range): BP systolic 100–137; BP diastolic 61–88; PULSE 54–97; RESP 9–20; TEMP 36.1–37.1; O2SAT 95–100
[2020-10-14 05:29] LABS: Hematocrit 40.6 % (42.0-52.0); Hemoglobin 14.1 g/dL (14.0-18.0); Mean Corpuscular HGB Conc 34.7 g/dl (32-36); Mean Corpuscular Hemoglobin 29.2 pg (26-34); Mean Corpuscular Volume 84.1 fl (80-100); Mean Platelet Volume 10.6 fl (7.4-10.4); Platelet Count Result 203 k/mm3 (150-375); Red Blood Count 4.83 M/mm3 (4.6-6.20); Red Cell Distribution Width 12.7 % (11.5-14.5); White Blood Count 9.2 K/mm3 (4.5-10.0)
[2020-10-14 05:50] LABS: Alanine Aminotransferase 14 U/L (4-50); Albumin Level 3.8 g/dL (3.5-5.1); Alkaline Phosphatase 33 U/L (38-126); Anion Gap 3 mmol/L (8-16); Aspartate Amino Transferase 17 U/L (17-59); Bilirubin,Total 0.4 mg/dL (0.2-1.3); Blood Urea Nitrogen 12 mg/dL (9-20); Calcium 9.2 mg/dL (8.4-10.2); Carbon Dioxide 32 mmol/L (22-30); Chloride 103 mmol/L (98-107); Estimated CRCL calculation 104 ml/min; Estimated Glomerular Filt Rate > 60; Glucose 99 mg/dL (75-110); Potassium 4.2 mmol/L (3.4-5.0); Sodium 138 mmol/L (137-145)
[2020-10-14] MEDS: MAGNESIUM OXIDE 400 MG TABLET PO (08:41)
[2020-10-14] MEDS: TICAGRELOR 90 MG TABLET PO ×2 (08:41→20:23)
[2020-10-14] MEDS: ROSUVASTATIN 10 MG TABLET 20 MG PO (08:41)
[2020-10-14] MEDS: SACCHAROMYCES BOULARDII 250 MG CAPSULE PO ×2 (08:41→17:12)
[2020-10-14] MEDS: ASPIRIN 81 MG CHEWABLE TABLET PO (08:41)
[2020-10-14] MEDS: METOPROLOL SUCCINATE EXT REL 25 MG TABCR PO (08:42)
--- NOTE | 2020-10-14 09:36 | PM.IMPN ---
Progress Note: A&P Assessment and Plan (1) Seizure: Code(s): R56.9 - Unspecified convulsions Status: Acute Assessment and Plan: Acute seizure was likely secondary to hypotension which may have been caused by the patient's recent beta-gerald and cardiac medications that have been started since getting his stent placed as well as possible volume depletion from diarrhea. He has no prior seizure history. Electrolytes are WNL. CT brain unremarkable. EEG demonstrated no abnormalities. TSH is normal. Carotid doppler US demonstrates <50% stenosis of the ICA bilaterally. Appreciate neurology input. Dr. Troncoso does not recommend initiating anticonvulsant at this time. No driving for 3 months. No baths or swimming pools. He will need to follow-up with neurology. (2) Unresponsive episode: Code(s): R41.89 - Other symptoms and signs involving cognitive functions and awareness Status: Acute Assessment and Plan: [place] most likely secondary to seizure given associated history of urinary incontinence and generalized shaking with 5 minutes of confusion following the episode. Additional consideration includes syncope and cardiology was consulted given recent STEMI 2 weeks ago. Echocardiogram performed during this admission demonstrated normal LV systolic function with EF 65-70%, mild left atrial enlargement, normal diastolic function, and no significant valve disease. Continue telemetry monitoring as patient is at risk for arrhythmia Appreciate cardiology input No further episodes (3) Arterial hypotension: Qualifiers: Hypotension type: unspecified hypotension type Qualified Code(s): I95.9 - Hypotension, unspecified Code(s): I95.9 - Hypotension, unspecified Status: Resolved Assessment and Plan: Resolved. Likely medication induced. He also reports recent diarrhea and may have had a bit of volume depletion from that as well. He has no evidence of acute infection. Blood pressure normalized with IV fluid boluses. Lisinopril held and metoprolol resumed at a lower dose Continue to monitor closely (4) Hypertension: Qualifiers: Hypertension type: unspecified Qualified Code(s): I10 - Essential (primary) hypertension Code(s): I10 - Essential (primary) hypertension Status: Chronic Assessment and Plan: Blood pressure was low on admission to the emergency department but normalized following 3 liter fluid bolus and has normalized. BP is stable with a few soft readings. Most recent 100/61. Cardiology consulted for assistance with blood pressure and medication regimen and recommended to hold lisinopril and continue metoprolol succinate at a lower dose of 25mg Continue to monitor closely (5) Hyperlipidemia: Qualifiers: Hyperlipidemia type: unspecified Qualified Code(s): E78.5 - Hyperlipidemia, unspecified Code(s): E78.5 - Hyperlipidemia, unspecified Status: Chronic Assessment and Plan: LFTs were normal 09/30/20. Continue statin therapy (6) Coronary artery disease: Qualifiers: Associated angina: without angina Coronary Disease-Associated Artery/Lesion type: [place] artery [place] vs. transplanted heart: [place] heart Qualified Code(s): I25.10 - Atherosclerotic heart disease of [place] coronary artery without angina pectoris Code(s): I25.10 - Atherosclerotic heart disease of [place] coronary artery without angina pectoris Status: Chronic Assessment and Plan: With acute anterior wall IN s/p 4 ADAN to the LAD by Dr. Horne on 09/28/20. Troponin <0.012. EKG reviewed. Echo reviewed. He is not having any chest pain. Continue metoprolol, rosuvastatin, aspirin and ticagrelor. Cardiology consulted, appreciate cardiology input Plan for intervention for RCA lesion today (7) Diarrhea: Code(s): R19.7 - Diarrhea, unspecified Status: Resolved Assessment and Pl
--- NOTE | 2020-10-14 10:54 | WPDMODSED ---
Moderate Sedation Note-Pt Data Patient Data Diagnosis: Coronary artery disease with recent anterior wall AL, PCI to LAD episode of syncope presumably related to hypotension known high-grade mid RCA lesion and planned PCI of this lesion is to occur today Present Complaint: no complaint Procedure to be performed/Plan: follow-up left coronary angiogram PCI to RCA Allergies Allergy/AdvReac Type Severity Reaction Status Date / Time No Known Allergies Verified 10/11/20 22:37 Home Medications Medication Instructions Recorded Confirmed Type aspirin [Children's Aspirin] 81 mg PO DAILY@0800 #30 tablet 09/30/20 10/11/20 Rx lisinopril 5 mg PO DAILY #30 tablet 09/30/20 10/11/20 Rx metoprolol succinate 50 mg PO QAM #30 tablet 09/30/20 10/11/20 Rx nitroglycerin [Nitrostat] 0.4 mg SUBLINGUAL Q5MIN PRN #30 09/30/20 10/11/20 Rx tablet rosuvastatin [Crestor] 20 mg PO DAILY #30 tablet 09/30/20 10/11/20 Rx ticagrelor [Brilinta] 90 mg PO Q12HR #60 tablet 09/30/20 10/11/20 Rx Current Medications: Active Medications Acetaminophen (Acetaminophen 325 Mg Tablet) 650 mg PO Q4H PRN PRN Reason: Mild Pain (1-3) or Fever Aspirin (Aspirin 81 Mg Chewable Tablet) 81 mg PO DAILY@0800 [facility] Last Admin: 10/14/20 08:41 Dose: 81 mg Documented by: Enoxaparin Sodium (Enoxaparin 40 Mg/0.4 Ml Syringe) 40 mg SUB-Q HS [facility] Last Admin: 10/13/20 21:05 Dose: 40 mg Documented by: Sodium Chloride (Normal Saline Iv) 500 mls @ 100 mls/hr IV CONT .Q5H [facility] Magnesium Oxide (Magnesium Oxide 400 Mg Tablet) [facility] [place] Admin: 10/14/20 08:41 Dose: 400 mg Documented by: Metoprolol Succinate (Metoprolol Succinate Ext Rel 25 Mg Tabcr) 25 mg PO QAM [facility] Last Admin: 10/14/20 08:42 Dose: 25 mg Documented by: Rosuvastatin Calcium (Rosuvastatin 10 Mg Tablet) 20 mg PO DAILY [facility] Last Admin: 10/14/20 08:41 Dose: 20 mg Documented by: Saccharomyces Boulardii (Saccharomyces Boulardii 250 Mg Capsule) 250 mg PO BID [facility] Last Admin: 10/14/20 08:41 Dose: 250 mg Documented by: Ticagrelor (Ticagrelor 90 Mg Tablet) 90 mg PO Q12HR [facility] Last Admin: 10/14/20 08:41 Dose: 90 mg Documented by: Sedation/Anesthesia: No previous sedation/anesthesia problems (including family history). PMFSH Past Medical History Medical History Coronary artery disease Hyperlipidemia Hypertension Surgical History Surgical History Stented coronary artery Family History Family History Grandparent Diabetes mellitus Family history of lung cancer Acute myocardial infarction Social History Social History Smoking packs per day: 1 Smoking cigarettes per day: 20.0 Smoking status: Former smoker Tobacco type: cigarettes Additional smoking assessment comments: 1 ppd quit 25 years ago Alcohol intake: former Drinks per week: 18 Substance use: never Living arrangements: with family Gender identity (if verbalized by the patient): Male Spiritual care concerns: No Mod Sed Physical Exam Physical Exam Pre Procedural Exam: Normal: Appearance, Throat, Airway, Lungs, Heart Size, Heart Rate, Heart Rhythm, Neuro Exam and Extremities Hours since solid foods: 12 Hours since liquid intake: 12 Internal Medicine - PN: Obj Da Vital Signs Vital Signs: Vital Signs - 24 hr 10/13/20 12:00 10/13/20 13:25 10/13/20 16:00 Temperature 37.0 C Pulse Rate 61 68 58 L Respiratory Rate 18 Blood Pressure 130/65 Pulse Oximetry 100 10/13/20 17:39 10/13/20 20:00 10/14/20 00:00 Temperature 36.2 C L Pulse Rate 66 58 L 60 Respiratory Rate 18 16 Blood Pressure 119/63 Pulse Oximetry 99 100 10/14/20 04:00 10/14/20 05:16 10/14/20 08:00 Temperature 36.6 C Pulse Rate 62 60 69 Respiratory Rate 16 Blood Pressure 100/61 Pulse Oximetry 99 0
--- NOTE | 2020-10-14 10:54 | PC.NURSE ---
Patient to recyclable materials sorter for procedure. Report to ELSY Casarez.
--- NOTE | 2020-10-14 11:40 | WPDCARDPROC ---
Cardiac Cath Procedure Note Date of procedure:: 10/14/20 Performing physician:: Chuck Horne MD Indication:: known high-grade RCA stenosis recent anterior wall OK status post PCI Brief clinical history:: this is a 54-year-old man with a recent anterior wall OK treated with emergency PCI to the LAD. At the same time he was found to have a very high-grade unrelated lesion in the mid RCA at the is planned for staged PCI. Procedure Procedure performed:: Left coronary angiogram right coronary angiogram PCI (ADAN) to the mid right coronary artery Sedation/Medication given:: fentanyl 50 mg Versed 2 mg case start time 11 13 case end time 11:34 a.m. sedation provided by Leida Mitchell RN, trained observer Access site:: right femoral artery Estimated blood loss:: 15-20 cc Procedure note:: patient was brought to the cardiac catheterization lab in the postabsorptive state. He was already taking dual anti-platelet therapy and was therefore given no additional anti-platelet therapy for this intervention. The right femoral artery was then punctured using modified Seldinger technique and a 6 [place]ian vascular sheath was placed. After this I used a 5 [place] FL4 catheter engage and inject the left coronary artery in the right left oblique cranial projections. Following this the left coronary catheters were removed was removed and I engaged the right coronary artery using a 6 [place] JR4 guiding catheter. Pre PCI angiograms were performed. The intervention was then carried out as detailed below. The patient received intravenous Angiomax bolus and infusion for this intervention. After PCI the case was terminated that sheath was sutured into position he will be taken to the holding area for manual sheath removal. Procedure was uncomplicated he left the labor relations manager with no evidence of a groin hematoma. Findings:: hemodynamics: Central aortic pressure was 126/72 the left main coronary is nicely patent the left anterior descending is a medium caliber artery extending down to the apex the LAD has been stented from the proximal portion down to the midportion as was dictated in the previous emergency note. The entire area of stent treatment is widely patent with no loss of lumen and JULISA JULISA 3 flow in the LAD. A small 2nd diagonal branch is jailed by the stented area also was seen on previous angiography. The circumflex is a medium caliber artery giving rise to the marginal branches it is smooth and angiographically normal. Right coronary artery is a very large caliber vessel dominant to the posterior circulation and has a very high-grade complex 95% stenosis in the midportion. This lesion is ulcerated and root angiographically very complex. Distally the right coronary artery has minimal luminal irregularities. Intervention: The right coronary was crossed with a 0.014 BMW coronary guidewire. The lesion was pre-dilated using a 3.5 x 20 mm emerge balloon. Following this I deployed a 4.5 x 26 mm L[place] stent to the target lesion with excellent angiographic result there is no residual stenosis perforation dissection or distal embolization. Conclusion:: 1. Coronary artery disease with recent anterior wall infarction which was intervened on with 4 Orsiro drug-eluting stents remains nicely patent. 2. High-grade complex 95% mid RCA stenosis which was identified at the time of the recent emergency which was intervened on today successfully using the 4.5 x 26 mm Joon drug-eluting stent deployed at 12 atmospheres with an excellent anatomical result. Chuck Horne MD [facility]
--- NOTE | 2020-10-14 12:12 | ECG_ITS ---
Measurements Intervals [place] Rate: 57 P: 57 IN: 159 QRS: 6 QRSD: 104 T: 103 QT: 446 QTc: 438 Interpretive Statements SINUS BRADYCARDIA DELAYED PRECORDIAL R/S TRANSITION T WAVE ABNORMALITY IN HIGH LATERAL LEADS- CONSIDER ISCHEMIA ABNORMAL ECG Electronically Signed On 10-14-2020 13:34:17 CDT by Mandeep Patel D.O.
--- NOTE | 2020-10-14 13:08 | SUR.PHASEII ---
Angiomax infusion completed at 1210. Infusion stopped.
[2020-10-14] MEDS: SODIUM CHLORIDE 0.9% IV 1,000 ML 125 ML IV CONT (14:15)
--- NOTE | 2020-10-14 16:16 | PC.NURSE ---
Pt arrived from cath lab technologist via bed. Report received from ELSY Casarez @ [id number]. Belongings brought over by ELSY Zuñiga from [address] [place] [address].
--- NOTE | 2020-10-14 16:38 | SUR.PHASEII ---
1615- Patient transferred to IMU 231 via bed. Groin site assessed by both this RN and IMU RN Sonia. Patient updated on and agreeable to plan of care.
[2020-10-14] MEDS: ENOXAPARIN 40 MG/0.4 ML SYRINGE SUB-Q (20:23)
[2020-10-15] VITALS (7 sets, daily range): BP systolic 111–127; BP diastolic 68–74; PULSE 56–75; RESP 14–16; TEMP 35.9–36.6; O2SAT 93–100
--- NOTE | 2020-10-15 05:11 | ECG_ITS ---
Measurements Intervals [place] Rate: 62 P: 54 IA: 152 QRS: -13 QRSD: 90 T: 95 QT: 417 QTc: 426 Interpretive Statements SINUS RHYTHM CANNOT RULE OUT SEPTAL INFARCT, AGE INDETERMINATE T WAVE ABNORMALITY IN ANTEROLAT/HIGH LAT LEADS- CONSIDER ISCHEMIA ABNORMAL ECG Electronically Signed On 10-15-2020 7:54:09 CDT by Mandeep Patel D.O.
[2020-10-15 05:16] LABS: Hematocrit 40.7 % (42.0-52.0); Hemoglobin 13.9 g/dL (14.0-18.0); Mean Corpuscular HGB Conc 34.2 g/dl (32-36); Mean Corpuscular Hemoglobin 28.9 pg (26-34); Mean Corpuscular Volume 84.6 fl (80-100); Mean Platelet Volume 10.7 fl (7.4-10.4); Platelet Count Result 199 k/mm3 (150-375); Red Blood Count 4.81 M/mm3 (4.6-6.20); Red Cell Distribution Width 12.6 % (11.5-14.5); White Blood Count 7.6 K/mm3 (4.5-10.0)
[2020-10-15 05:31] LABS: Anion Gap 4 mmol/L (8-16); Blood Urea Nitrogen 15 mg/dL (9-20); Calcium 8.7 mg/dL (8.4-10.2); Carbon Dioxide 30 mmol/L (22-30); Chloride 104 mmol/L (98-107); Estimated CRCL calculation 104 ml/min; Estimated Glomerular Filt Rate > 60; Glucose 92 mg/dL (75-110); Magnesium 2.1 mg/dL (1.6-2.3); Potassium 4.1 mmol/L (3.4-5.0); Sodium 138 mmol/L (137-145)
--- NOTE | 2020-10-15 09:20 | PM.PNCARD ---
Progress Note: A&P Assessment and Plan (1) Arterial hypotension: Qualifiers: Hypotension type: unspecified hypotension type Qualified Code(s): I95.9 - Hypotension, unspecified Code(s): I95.9 - Hypotension, unspecified Status: Resolved Assessment and Plan: Pt appears to have had syncope and subsequent sz 2nd low BP, 2nd meds + diarrhea. Hypotension resolved w/ lowered dose meds. (2) Coronary artery disease: Qualifiers: Coronary Disease-Associated Artery/Lesion type: [place] artery [place] vs. transplanted heart: [place] heart Associated angina: without angina Qualified Code(s): I25.10 - Atherosclerotic heart disease of [place] coronary artery without angina pectoris Code(s): I25.10 - Atherosclerotic heart disease of [place] coronary artery without angina pectoris Status: Chronic Assessment and Plan: H/O CAD and recent [place]. Echo showed normal LV fxn. Status post PCI the RCA yesterday. Groin looks good. He is ready for discharge. Home with rosuvastatin 20 mg daily, aspirin 81 mg daily, Brilinta 90 mg p.o. b.i.d., p.r.n. nitroglycerin, metoprolol succinate 25 mg p.o. daily. No lisinopril. DC enaxaparin and mag Will follow-up with Dr. Horne within 2 weeks. Cardiac rehab after that (3) Unresponsive episode: Code(s): R41.89 - Other symptoms and signs involving cognitive functions and awareness Status: Acute Assessment and Plan: Probably related to hypotension (4) Hyperlipidemia: Qualifiers: Hyperlipidemia type: unspecified Qualified Code(s): E78.5 - Hyperlipidemia, unspecified Code(s): E78.5 - Hyperlipidemia, unspecified Status: Chronic Assessment and Plan: On statin Subjective Date/time seen: 10/15/20 09:20 Interval history: FU CAD, syncope Date of service10/15/2020: He feels well. Wants to go home. No chest pain or shortness of breath. Groin seems fine Review of Systems Constitutional: Constitutional: Reports no additional constitutional complaints Eyes: Eyes: Reports no additional eye complaints ENT: Reports system reviewed and no additional complaints, except as documented Cardiovascular: Cardiovascular: Reports as per HPI, Denies chest pain, Denies lightheadedness, Denies palpitations, Denies dyspnea and Denies dyspnea on exertion Respiratory: Respiratory: Reports no additional respiratory complaints, Denies dyspnea and Denies dyspnea on exertion Gastrointestinal: Gastrointestinal: Reports no additional gastrointestinal complaints and Denies abdominal pain Musculoskeletal: Musculoskeletal: Reports no additional musculoskeletal complaints Integumentary/Breasts: Skin/Breast: Reports system reviewed and no additional complaints, except as docu Neurologic: Reports system reviewed and no additional complaints, except as documented, Reports as per HPI, Denies behavioral changes and Denies confusion Psychiatric: Psychiatric: Denies behavioral changes and Denies confusion Endocrine: Endocrine: Reports no additional endocrine complaints and Denies palpitations Hematologic/Lymphatic: Hematologic/Lymphatic: Reports no additional hematologic/lymphatic complaints Allergic/Immunologic: Allergic/Immunologic: Reports no additional allergic/immunologic complaints Exam Narrative: Exam Narrative: Very pleasant and appreciative middle-aged male NAD Const: General: comfortable and no acute distress; No confusion Orientation/consciousness: No confusion HENMT: Mouth: Yes moist mucous membranes Eyes: Sclera: sclerae normal Pupils: Equal, round and reactive pupils present EOM: EOMs intact bilaterally Neck: Neck: supple and no JVD Resp: Effort & Inspection: normal respiratory effort Auscultation: clear to auscultation bilaterally Cardio: Rate: regular rate Rhythm: regular rhythm Other: PMI nondisplaced no murmur no gallop no rub Right groin without hematoma ecchymosis or bruit. bandage remove
--- NOTE | 2020-10-15 09:33 | PM.DS ---
DS: Admitting Diagnosis Admitting Diagnosis Admitting Diagnosis: Unresponsive episode DS: Discharge Diagnosis Discharge Diagnosis (1) Seizure: Code(s): R56.9 - Unspecified convulsions Status: Acute Assessment and Plan: Discharge Summary (Date of Service 10/15/20): Mr. Gonzalez is a 54 y.o. male with PMH significant for coronary artery disease s/p recent acute anterior wall ID s/p 4 drug-eluting stents to the LAD 09/28/20 and RCA stent 10/14/[address] Horne, borderline diabetes managed with lifestyle and diet modification, and hyperlipidemia who presented to the emergency department on 10/11/20 for the evaluation of an unresponsive episode in his friend's car. He reported that he had recently finished lunch and was in the car with his friend who was driving when he felt unwell. He subsequently became unresponsive for approximately 2 minutes. His friend noticed generalized shaking and the patient had urinary incontinence with the episode. He had confusion for 5 minutes following the episode as well. He reported no precipitating chest palpations or chest pain. On arrival to the emergency department, he was hypotensive with BP 73/39 and was given 3 liters of IV fluids. Labs notable for troponin <0.012, Hb 13.7, Hct 50.7, sodium 136. CT brain was unremarkable. CXR unremarkable. He was admitted to the hospitalist service for further care and neurology was consulted as well as cardiology given recent STEMI w/ PCI to LAD 2 weeks prior. The description given by the patient's friend sounded consistent with acute seizure, likely secondary to hypotension. Hypotension was likely secondary to the patient's antihypertensives initiated following stent placement as well as possible volume depletion from diarrhea. He had no prior seizure history. Electrolytes were WNL. TSH normal. Carotid doppler US demonstrated <50% stenosis of the ICA bilaterally. EEG was performed and demonstrated no abnormalities. Dr. Troncoso recommended no anticonvulsant given provoked seizure with no prior seizure history. He was advised that he cannot drive for at least 3 months and until cleared by Dr. Troncoso. He also was advised he cannot swim in swimming pools/hot tubs or take tub baths. He had a known RCA lesion identified during his previous cardiac catheterization 09/28/20 which intervention was anticipated for in stepwise fashion. Cardiology recommended cardiac catheterization for intervention of that lesion during this admission and he underwent PCI by Dr. Horne with 1 ADAN to the RCA 10/15/20. He had no further hypotension and no chest pain or palpitations. He felt back to his baseline with no complaints and he was felt stable for discharge from a cardiology standpoint as well. He was discharged in hemodynamically stable condition on the morning of 10/15/20. Worrisome signs and symptoms which would warrant return to the emergency department were discussed and he verbalized understanding. See further diagnoses for additional information. (2) Unresponsive episode: Code(s): R41.89 - Other symptoms and signs involving cognitive functions and awareness Status: Acute Assessment and Plan: [place] most likely secondary to seizure given associated history of urinary incontinence and generalized shaking with 5 minutes of confusion following the episode. Additional consideration included syncope and cardiology was consulted given recent STEMI 2 weeks prior to admission. Echocardiogram performed during this admission demonstrated normal LV systolic function with EF 65-70%, mild left atrial enlargement, normal diastolic function, and no significant valve disease. His RCA lesion was stented per cardiology. Telemetry was monitored with PVCs and one 2 and one 3 beat run of NSVT on 10/12 which resolved with electrolyte repletion with no other arrhythmias noted. Carotid doppler US demonstrated <50% stenosis of ICA bilaterally. (3) Arterial hypotension: Qualifiers: Hypot
[2020-10-15] MEDS: ROSUVASTATIN 10 MG TABLET 20 MG PO (09:51)
[2020-10-15] MEDS: SACCHAROMYCES BOULARDII 250 MG CAPSULE PO (09:51)
[2020-10-15] MEDS: TICAGRELOR 90 MG TABLET PO (09:51)
[2020-10-15] MEDS: METOPROLOL SUCCINATE EXT REL 25 MG TABCR PO (09:51)
[2020-10-15] MEDS: ASPIRIN 81 MG CHEWABLE TABLET PO (09:52)
== END 2020-10-15 12:00 | disposition home or self-care (01) | DRG 246 ==
LOC: ANHED 18:39 → ANH3MED 20:50 → ANHIMU 10-14 11:51
PROVIDERS: Physician Assistant; Specialist; Admitting Provider Family Medicine; Emergency Provider Emergency Medicine; PCP Student in an Organized Health Care Education/Training Program; Visit Provider Internal Medicine
PROC: 027034Z Dilation of Coronary Artery, One Artery with Drug-eluting Intraluminal Device, Percutaneous Approach (ICD-10-PCS; CPT 93454; principal; 2020-10-14 11:00)
PROC: 027034Z Dilation of Coronary Artery, One Artery with Drug-eluting Intraluminal Device, Percutaneous Approach (ICD-10-PCS; 2020-10-14 11:00)
DX: I25.10 Atherosclerotic heart disease of native coronary artery without angina pectoris (principal); I21.02 ST elevation (STEMI) myocardial infarction involving left anterior descending coronary artery; G40.89 Other seizures; I47.2 Ventricular tachycardia; I95.2 Hypotension due to drugs; T46.5X5A Adverse effect of other antihypertensive drugs, initial encounter; R41.89 Other symptoms and signs involving cognitive functions and awareness; I10 Essential (primary) hypertension; E78.5 Hyperlipidemia, unspecified; I25.5 Ischemic cardiomyopathy; R19.7 Diarrhea, unspecified; E11.9 Type 2 diabetes mellitus without complications; Z95.5 Presence of coronary angioplasty implant and graft; Z87.891 Personal history of nicotine dependence
CPT/HCPCS: 36415; 70450; 80048; 80053; 80307; 81001; 82948; 83036; 83735; 84100; 84443; 84484; 85025; 85027; 93005; 93308; 93454; 93880; 95816; 96360; 96361; 99285; A9270; C1725; C1769; C1874; C1887; C1894; C8924; C9600; J0461; J0583; J1644; J1650; J2250; J3010; J7030; J7040; Q9957

== ENCOUNTER 2020-12-07 17:20 | Outpatient (CLI) | payer OTHER, SELFPAY ==
--- NOTE | ~2020-12-07 | MR_ITS ---
EXAMINATION: MR brain/brain stem wo con DATE: 12/07/2020 18:14 INDICATION: Transient alteration of awareness. TECHNIQUE: Magnetic resonance imaging (MRI) of the brain and brainstem was performed without intraven ous contrast. Sequences included sagittal and axial T1-weighted FSE, axial diffusion-weighted FS EPI, axial T2*-weighted GRE, axial T2-weighted FLAIR Propeller, axial T2-weighted Propeller, coronal T2-w eighted FLAIR, and coronal T1-weighted 3D FSPGR. Apparent diffusion coefficient (ADC) maps were creat ed. COMPARISON: Head CT 10/11/2020 FINDINGS: There are areas of nonspecific increased T2-weighted signal intensity in the deep white mat ter of the parietal lobes, which is within normal limits for the patient's age. There is no intracran ial hemorrhage, acute infarction, or abnormal intracranial mass lesion. The ventricles are normal in size. The orbits are normal. The paranasal sinuses are clear. The mastoid air cells are normal. IMPRESSION: 1. Normal aging brain. Reviewed, dictated and finalized at location A. IMPRESSION: 1. Normal aging brain.
== END 2020-12-07 17:21 ==
LOC: MICIMG 17:22
PROVIDERS: PCP Student in an Organized Health Care Education/Training Program
DX: R40.4 Transient alteration of awareness (principal)
CPT/HCPCS: 70551

== ENCOUNTER 2021-02-02 16:30 | Outpatient (RCR) | payer OTHER, SELFPAY ==
[2020-11-14 12:04] VITALS: BP 120/70; PULSE 68; TEMP 36.9; O2SAT 98
[2020-11-14 12:19] VITALS: PULSE 62
--- NOTE | 2020-11-28 13:58 | PCCPR ---
Pt cxl CR today due to lightheadedness. He was waiting for a return call from .
--- NOTE | 2021-02-08 18:57 | PCCPR ---
Absent without call left for Dean asking him to give us update on his plan to return. He missed last 2 sessions.
--- NOTE | 2021-02-16 16:51 | PCCPR ---
Addendum entered by Racquel Muñoz RN 02/24/21 10:15: Valdemar did not call or show for the week of February 20. Due to poor attendance, he was discharged from the program. Original Note: Nacho returned our call and stated that he got a new job and has been unable to attend. He would like to return but unable to come to the 1630 session due to new schedule. Dean stated that he would be able to do the 1100 session, so he was transferred into that time slot for the remainder of his sessions, starting SaturdayFeb.20.
== END 2021-02-24 10:17 | disposition home or self-care (01) ==
LOC: ANHCPREHAB 16:30
PROVIDERS: PCP Student in an Organized Health Care Education/Training Program; Visit Provider Nurse Practitioner Adult Health
DX: Z95.5 Presence of coronary angioplasty implant and graft (principal)
CPT/HCPCS: 93798

== ENCOUNTER 2021-12-05 23:06 | Inpatient (IN) | payer BC, SELFPAY ==
--- NOTE | ~2021-12-05 | XR_ITS ---
XR chest 1V portable 12/08/2021 10:39 Indication: Post pacemaker insertion Procedure: AP portable chest Comparison: 12/06/2021 Findings: Heart size is normal. No focal air space disease, pulmonary edema, pleural effusion or susp ected pneumothorax. No acute osseous abnormality. Bipolar pacemaker leads in the right atrium and rig ht ventricle respectively. Impression: 1: No acute cardiopulmonary disease. Reviewed, dictated and finalized at location B. Impression: 1: No acute cardiopulmonary disease.
--- NOTE | ~2021-12-05 | XR_ITS ---
EXAMINATION: XR shoulder RT min 2V DATE: 12/06/2021 13:42 INDICATION: Right shoulder pain. TECHNIQUE: 4 views of right shoulder were obtained. COMPARISON: None. FINDINGS: Bone alignment is normal. No acute fracture. There is an old healed fracture of right clavi carlos. The glenohumeral joint is normal. There is moderate acromioclavicular joint osteoarthritis. Ther e is an electronic implant in left chest. IMPRESSION: 1. Moderate right acromioclavicular joint osteoarthritis. Reviewed, dictated and finalized at location B.
--- NOTE | ~2021-12-05 | CT_ITS ---
EXAMINATION: CT cervical spine wo con DATE: 12/06/2021 00:35 INDICATION: Head injury TECHNIQUE: Computed tomography (CT) of the cervical spine was performed without intravenous contrast. The dose-length product (DLP) was 460.57 mGy-cm. Automated exposure control and iterative reconstruc tion technique were employed. COMPARISON: None FINDINGS: There is no fracture, dislocation, or subluxation. There is moderate loss of intervertebral disc space height at C6-7. The vertebral body heights are maintained. The odontoid is intact. The pr evertebral soft tissues are normal. Small degenerative osteophytes project from the anterior endplate s of multiple vertebral bodies. IMPRESSION: 1. Moderate cervical spondylosis at C6-7 without acute osseous abnormality. Reviewed, dictated and finalized at location A.
--- NOTE | ~2021-12-05 | XR_ITS ---
EXAMINATION: XR chest 1V portable INDICATION: Transient alteration of awareness TECHNIQUE: Portable AP chest at 0035 hours COMPARISON: 08/19/2020 FINDINGS: The lungs are free of acute opacities. There is no pleural effusion or pneumothorax. The ca rdiomediastinal silhouette is normal. A cardiac monitoring device projects over the left chest. IMPRESSION: 1. No acute cardiopulmonary abnormality. Reviewed, dictated and finalized at location A.
--- NOTE | ~2021-12-05 | XR_ITS ---
EXAMINATION: XR chest 2V DATE: 12/09/2021 10:11 INDICATION: 24 hours post cardiac pacemaker insertion TECHNIQUE: PA and lateral views of the chest were obtained. COMPARISON: Chest radiograph dated 12/08/2021 FINDINGS: The lungs remain clear with no focal airspace opacities, pulmonary edema, pleural effusion or pneumot horax. The cardiomediastinal silhouette is normal. Dual lead pacemaker with unchanged lead tips proje cting over the expected locations of the right atrium and right ventricle. Left pectoral implantable color television console monitor. IMPRESSION: 1. Dual-lead cardiac pacemaker remains in expected position. 2. No acute cardiopulmonary disease. Reviewed, dictated and finalized at location A.
--- NOTE | ~2021-12-05 | CT_ITS ---
EXAMINATION: CT brain wo con INDICATION: Head injury COMPARISON: 03/13/2021 TECHNIQUE: Standard unenhanced head CT. The dose-length product (DLP) was 681.00 mGy-cm. The mA was a djusted according to patient size. Iterative reconstruction technique was employed. FINDINGS: There is a left parietal scalp hematoma. There is no intracranial hemorrhage, acute infarct ion, or abnormal mass lesion. The ventricles are normal. There is no abnormal mass effect or midline shift. The stevens-white matter differentiation is normal. The basal cisterns are patent. The orbits are normal. The paranasal sinuses, mastoids and calvarium are normal. IMPRESSION: 1. Left parietal scalp hematoma without acute intracranial abnormality. Reviewed, dictated and finalized at location A.
[2021-12-05 23:07] VITALS: PULSE 109; RESP 14; O2SAT 99
--- NOTE | 2021-12-05 23:12 | ECG_ITS ---
Measurements Intervals [place] Rate: 109 P: [place]: 0 QRS: -19 QRSD: 94 T: 60 QT: 329 QTc: 444 Interpretive Statements ATRIAL FIBRILLATION WITH RAPID VENTRICULAR RESPONSE VENTRICULAR PREMATURE COMPLEXES ABNORMAL ECG Electronically Signed On 12-10-2021 7:46:43 CDT by Mandeep Patel D.O.
--- NOTE | 2021-12-05 23:30 | ED.SYNCOPE ---
HPI - Syncope General Chief Complaint: Syncope Stated Complaint: SYNCOPAL AT WORK - HIT HEAD, COOL PALE BI/TRIGEM Time Seen by Provider: 12/05/21 23:12 Source: patient Mode of arrival: EMS Limitations: no limitations History of Present Illness HPI narrative: This is a 55 year old male with history of syncopal episodes and CAD s/p stent who presents for evaluation of a syncopal episode. Patient states he was working when he reports he vision started going white and he felt like he was going to pass out. He passed out and he fell backwards hitting his head on hard ground. He has hematoma to back of his head. He reports headache at located of this hematoma. He denies chest pain, palpitations, heart racing, nausea, vomiting dizziness. He reports tingling in his fingers. He states he has had tilt test and loop recorder for past episodes of syncope . He states he has never been told a cause. He takes brillinta and aspirin as blood thinners. Related Data Home Medications Medication Instructions Recorded Confirmed allopurinol 300 mg PO DAILY 11/14/20 12/06/21 Allergies Allergy/AdvReac Type Severity Reaction Status Date / Time No Known Allergies Allergy Verified 12/05/21 23:18 Review of Systems Review of Systems: All systems reviewed & are unremarkable except as noted in HPI and below Constitutional: Constitutional: Denies chills and Denies fever(s) ENT: Denies nasal congestion Cardiovascular: Cardiovascular: Denies chest pain and Denies rapid heart rate Respiratory: Respiratory: Denies cough, Denies dyspnea and Denies wheezing Gastrointestinal: Gastrointestinal: Denies abdominal pain, Denies diarrhea, Denies nausea and Denies vomiting Neurologic: Denies dizziness, Reports syncope and Reports headache(s) Endocrine: Endocrine: Denies fatigue [facility] Past Medical History Medical History Coronary artery disease Hyperlipidemia Hypertension Surgical History Surgical History Stented coronary artery Family History Family History Grandparent Diabetes mellitus Family history of lung cancer Acute myocardial infarction Social History Social History Smoking packs per day: 1.5 Smoking cigarettes per day: 30.0 Years smoked: 12 Smoking pack-years: 18.00 Smoking status: Former smoker Tobacco type: cigarettes Second hand tobacco smoke exposure: No Smoking end date: 07/22/94 Additional smoking assessment comments: 1 ppd quit 25 years ago Alcohol intake: never Drinks per week: 18 Substance use: current Substance use type: marijuana Gender identity (if verbalized by the patient): Male Spiritual care concerns: No Exam Const: General: alert Orientation/consciousness: patient oriented x3 HENMT: Head: hematoma left occipital Eyes: Pupils: Equal, round and reactive pupils present EOM: EOMs intact bilaterally Resp: Effort & Inspection: normal respiratory effort and no retractions Auscultation: clear to auscultation bilaterally Cardio: Rate: tachycardic Rhythm: abnormal rhythm Heart sounds: no murmurs GI: GI Palp: Yes Soft to palpation, No Tenderness to palpation present (GI), No Guarding due to palpation present (GI) and No Rigid due to palpation Auscultation: normal bowel sounds Skin: General skin exam: normal color Neuro: General: patient oriented x3, moves all extremities and CN's II-XI intact bilaterally Extrem: General: normal to inspection Psych: Mental Status: mental status grossly normal Affect: normal affect Course Reevaluation(s) Reevaluation #1: I Discussed case with DR. Siddiqui. She agrees it is appropriate for patient to be admitted for syncope and paroxysmal atrial fibrillation. Date: 12/06/21 Time: 00:05 Reevaluation #2: PAtient states he fe
[2021-12-05] MEDS: SODIUM CHLORIDE 0.9% IV 1,000 ML 999 ML IV CONT (23:49)
[2021-12-06] VITALS (12 sets, daily range): BP systolic 110–134; BP diastolic 74–93; PULSE 52–102; RESP 16–19; TEMP 36.1–36.8; O2SAT 98–100
--- NOTE | 2021-12-06 | ECG_ITS ---
Measurements Intervals [place] Rate: 55 P: 44 WA: 159 QRS: -21 QRSD: 95 T: 34 QT: 422 QTc: 405 Interpretive Statements SINUS BRADYCARDIA BORDERLINE ECG Electronically Signed On 12-06-2021 6:36:51 CDT by Mandeep Patel D.O.
--- NOTE | 2021-12-06 | ECHO_ITS ---
Patient Info Name: Valdemar Gonzalez Age: 55 years : 1965 Gender: Male Ht: 68 in Wt: 213 lbs BSA: 2.18 m2 HR: 55 bpm Heart Rhythm: Sinus Rhythm Technical Quality: Good Exam Date: 12/06/2021 12:47 PM Exam Location: [facility] Pulmonary Exam Room: 328 Patient Status: Inpatient Admit Date: 12/06/2021 Staff Ordering Physician: Lan Lee M.A., MD [place] Selector: Linda Anderson RDCS Attending Provider: Marzena Dotson DO Referring Physician: Erik KAUFMAN; Exam Type: CA echo doppler color flow Study Info Indications - CAD S/P STENT SYNCOPE Complete two-dimensional, color flow and Doppler transthoracic echocardiogram is performed. Summary 1. Complete two-dimensional, color flow and Doppler transthoracic echocardiogram is performed. 2. Normal left ventricular size and thickness. Normal left ventricular systolic function with no segmental wall motion abnormalities, ejection fraction 60-65 %. Normal diastolic function. 3. Left atrial chamber dimension is mildly enlarged. 4. No significant valve disease. 5. Normal sinus rhythm. Left Ventricle Left ventricular chamber dimension is normal. Left ventricular systolic function is normal, estimated at 60-65%. There is no increased left ventricular wall thickness. Left ventricular septal wall motion is normal. The left ventricular diastolic function is normal. Right Ventricle Right ventricular chamber dimension is normal. Right ventricular systolic function is normal. Left Atria Left atrial chamber dimension is mildly enlarged. Right Atria Right atrial chamber dimension is normal. Aortic Valve The aortic valve is trileaflet. There is no aortic valve sclerosis. There is no aortic valve stenosis. There is no aortic valve regurgitation. Pulmonic Valve The pulmonic valve is normal. There is no pulmonic valve stenosis. There is trace pulmonic regurgitation. Mitral Valve The mitral valve has normal leaflets. There is no mitral valve stenosis. There is trace mitral valve regurgitation. Tricuspid Valve The tricuspid valve leaflets are normal. There is no significant tricuspid valve stenosis. There is trace tricuspid valve regurgitation. No pulmonary hypertension, estimated pulmonary arterial systolic pressure is 35 mmHg. Pericardium/Pleural The pericardium appears normal. There is no pericardial effusion. Inferior Vena Cava Normal inferior vena cava with >50% collapse upon inspiration consistent with Empty right atrial pressure, 10 mmHg. Aorta The aortic root size at the sinus of Valsalva is normal. The prox ascending aorta size is normal. Left Ventricular Outflow Tract Name Value Normal LVOT 2D LVOT Diameter 2.1 cm LVOT Doppler LVOT Peak Gradient 5 mmHg LVOT Mean Gradient 2 mmHg LVOT VTI 22 cm LVOT VTI/AV VTI Ratio 0.9 LVOT Stroke Volume 77 ml LVOT CO 13.7 l/min LVOT CI 6.3 l/min/m2
[2021-12-06 00:17] LABS: Glucose Point of Care 141 mg/dl (65-105)
[2021-12-06 00:23] LABS: Basophils Absolute Auto 0.1 K/mm3 (0.0-0.1); Basophils Percent Auto 0.6 % (0.2-1.2); Eosinophils Absolute Auto 0.2 K/mm3 (0-0.3); Eosinophils Percent Auto 1.8 % (0-4.4); Hematocrit 42.8 % (42.0-52.0); Hemoglobin 13.7 g/dL (14.0-18.0); Immature Granulocyte Absolute 0.03 K/mm3 (0.00-0.031); Immature Granulocyte Percent A 0.3 % (0-0.5); Lymphocytes Absolute Auto 1.23 K/mm3 (0.9-3.2); Lymphocytes Percent Auto 12.7 % (18.3-44.2); Mean Corpuscular Hemoglobin 28.8 pg (26-34); Mean Corpuscular Volume 89.9 fl (80-100); Mean Platelet Volume 10.7 fl (7.4-10.4); Monocytes Absolute Auto 0.7 K/mm3 (0.1-0.6); Monocytes Percent Auto 7.2 % (2.6-8.5); Neutrophils Absolute Auto 7.5 K/mm3 (1.3-6.7); Neutrophils Percent Auto 77.4 % (45.5-73.1); Platelet Count Result 143 k/mm3 (150-375); Red Blood Count 4.76 M/mm3 (4.6-6.20); Red Cell Distribution Width 13.8 % (11.5-14.5); White Blood Count 9.7 K/mm3 (4.5-10.0)
[2021-12-06 00:39] LABS: INR 1.2; Prothrombin Time 14.7 Seconds (11.1-14.7)
[2021-12-06 00:43] LABS: Alanine Aminotransferase 19 U/L (6-50); Alkaline Phosphatase 33 U/L (38-126); Anion Gap 7 mmol/L (8-16); Aspartate Amino Transferase 23 U/L (17-59); Bilirubin,Total 0.5 mg/dL (0.2-1.3); Blood Urea Nitrogen 18 mg/dL (9-20); Calcium 8.5 mg/dL (8.4-10.2); Carbon Dioxide 28 mmol/L (22-30); Chloride 103 mmol/L (98-107); Estimated CRCL calculation 103 ml/min; Estimated Glomerular Filt Rate > 60; Glucose 130 mg/dL (65-110); Lactic Acid Reflex 1.1 mmol/L (0.7-2.0); Magnesium 2.1 mg/dL (1.6-2.3); Potassium 3.7 mmol/L (3.4-5.0); Sodium 138 mmol/L (137-145)
[2021-12-06 00:55] LABS: NT Pro B Type Natriuretic Pept 92 pg/mL (5-100); Troponin I < 0.012 ng/mL (0.000-0.034)
[2021-12-06 01:20] LABS: Appearance Urine Clear (Clear); Bilirubin Urine Negative (Negative); Blood Urine Negative (Negative); Color Urine Yellow (Yellow); Glucose Urine UA Negative (Negative); Ketones Urine Negative (Negative); Leukocyte Esterase Ur Negative LEU/UL (Negative); Nitrate Urine Negative (Negative); Protein Urine Negative (Negative); Specific Grav Ur 1.015 (1.001-1.035); Urobilinogen Urine 0.2 mg/dL (<2.0)
[2021-12-06 01:24] LABS: Add Urine Microscopic? NO
[2021-12-06 01:30] LABS: Amphetamine Screen Urine Negative (Negative); Barbiturate Screen Urine Negative (Negative); Benzodiazepines Screen Urine Negative (Negative); Cannabinoid Screen Urine Positive (Negative); Cocaine Screen Urine Negative (Negative); Methadone Screen Urine Negative (Negative); Opiate Screen Urine Negative (Negative); Phencyclidine Screen Urine Negative (Negative)
[2021-12-06 03:30] LABS: SARS-CoV-2 RNA PCR Negative
--- NOTE | 2021-12-06 04:36 | ADMGEN ---
This patient, Valdemar Gonzalez, was admitted to [facility] Surg Room 328-01. Patient/family oriented to hospital policies and general routines including ID bracelet, bed and alarms, visiting hours, pain management, procedures, bathroom and other care routines, personal items, smoking policy, room service/diet, and visiting hours. Information on how to activate the Rapid Response Team has been discussed. Patient/Family are encouraged to report perceived risks to care and to ask questions if they do not understand what they are told or what they should do.
[2021-12-06] MEDS: SODIUM CHLORIDE 0.9% IV 1,000 ML 125 ML IV CONT ×2 (06:25→16:07)
--- NOTE | 2021-12-06 08:55 | PM.CNCAR ---
Assessment and Plan Additional Plan 55-year-old man with coronary disease anterior wall infarction interrupted with emergency PCI to the LAD 1 year ago. He then had a staged RCA intervention shortly after that. Has not had any clinically recognized ischemic problems since then. He has interestingly had a number of syncopal episodes I believe this is the 3rd episode since his infarction. He has episodes remain unexplained. He does have a [employer] loop recorder that was implanted last summer for this reason. I will recommend and arrange for the [employer] rep to interrogate the device and hopefully shed some light on this being an arrhythmic event or not. I will also recommend stopping his Brilinta since his PCI was done a year ago he no longer should require dual anti-platelet therapy. I will also for the time being put his metoprolol on hold given the fact that he is continuing to have syncopal episodes and he is asymptomatically bradycardic. Chuck Horne MD [facility] History of Present Illness History of Present Illness Consult date/time: 12/06/21 08:55 Consult reason: Other (Syncope) Reason For Visit: Syncope,Paroxsymal Atrial Fibrillation Narrative: This is a 55-year-old man known to me with a history of coronary artery disease and syncope who presents to the hospital last evening after having another syncopal episode while he was at work last evening. The patient works for [employer] and he was working on a packaging line. While he was standing they are working he was having significantly symptoms of his right lower extremity with paresthesias. He found this to be somewhat unusual he was moving his leg around to try to resolve those symptoms. For shortly after that he started to feel a pre syncopal with his vision becoming white and the next thing he remembers he was lying on the floor recovering with bystanders over him. He thinks he was unresponsive for just a short time. Despite wearing a hard hat he did sustain a blow to the back of the head. He was brought into the emergency room evaluated and admitted to the hospital. The patient has been on telemetry since admission and his ECG demonstrates sinus rhythm/sinus bradycardia and all of the rhythm strips demonstrates sinus rhythm. My partner who was on-call last night was notified that he had an episode of atrial fibrillation last night which was apparently self-limited. He has no history of atrial fibrillation and nose symptoms of palpitations. There is no recording on the record in the way of ECGs or rhythm strips that demonstrate an episode of atrial fibrillation. He is asymptomatic this morning eating his breakfast and does not have any additional complaints. He initially presented here at [facility] in September of 2020 with the chest pain and evidence of an acute anterior wall MD. He underwent emergency angiography and was found to have total occlusion of the LAD he underwent successful but somewhat challenging intervention deploying a series of drug-eluting stents from the midportion of the LAD back to the proximal segment restoring good flow a good angiographic result. He had very complex high-grade stenosis in the mid right coronary artery as well. That was treated with stenting in a staged fashion within a couple of weeks after the original event. Since the original event the patient has not had any additional chest pain episodes. He was seen in my office last in May of 2021 and was free of complaints. The patient has had several syncopal episodes since his original MD. One occurred within the 1st couple of weeks 1 occurred last summer and then he was seen in consultation by the electrophysiology service at [facility]. They performed a unremarkable tilt-table exam on him in December of last year. The clinical impression was that he was likely experiencing orthostatic hypotension. On the 1st syncopal episode his lisinopril was discontinued and h
[2021-12-06] MEDS: ASPIRIN 81 MG CHEWABLE TABLET PO (09:56)
[2021-12-06] MEDS: allopurinoL 300 MG TABLET PO (09:56)
[2021-12-06] MEDS: ROSUVASTATIN 10 MG TABLET 20 MG PO (09:56)
[2021-12-06] MEDS: HYDROcodone/acetaminophen (*CRX) 5-325 MG TABLET 1 TAB PO ×2 (10:22→15:05)
--- NOTE | 2021-12-06 11:07 | PM.IMHP ---
H&P: HPI History of Present Illness Date/Time: 12/06/21 11:07 Chief Complaint: 55 years old male with past medical history of syncope status post loop recorder placement negative tilt-table test in the past was following Cardiology as out history of myocardial infarction more than a year ago status post stent placement on dual antiplatelet patient present to the hospital with syncopal episode today while was at work lasted for few minutes denies post episode confusion urine or stool incontinence tongue biting denies chest pain or shortness of breath patient sustained trauma to the back of the head secondary to fall had hematoma patient on dual antiplatelet cardiology was consulted as the was concern for 1 episode of AFib with RVR also patient has episodes of bradycardia sinus bradycardia metoprolol was discontinued by Cardiology also Brilinta was discontinued as patient does not require dual antiplatelet per Cardiology currently patient complains of right shoulder pain and headache no neurological loss of function Review of Systems Review of Systems: Twelve system review was done negative except mentioned in HPI PMFSH Past Medical History Medical History Coronary artery disease Hyperlipidemia Hypertension Surgical History Surgical History Stented coronary artery Family History Family History Grandparent Diabetes mellitus Family history of lung cancer Acute myocardial infarction Social History Social History Smoking packs per day: 1.5 Smoking cigarettes per day: 30.0 Years smoked: 12 Smoking pack-years: 18.00 Smoking status: Former smoker Tobacco type: cigarettes Second hand tobacco smoke exposure: No Smoking end date: 07/22/94 Additional smoking assessment comments: 1 ppd quit 25 years ago Alcohol intake: never Drinks per week: 18 Substance use: current Substance use type: marijuana Gender identity (if verbalized by the patient): Male Spiritual care concerns: No Meds Home Medications and Allergies Home Medications Medication Instructions Recorded Confirmed Type Brilinta 90 mg PO Q12HR #60 tablet 09/30/20 12/06/21 Rx aspirin [Children's Aspirin] 81 mg PO DAILY@0800 #30 tablet 09/30/20 12/06/21 Rx nitroglycerin [Nitrostat] 0.4 mg SUBLINGUAL Q5MIN PRN #30 09/30/20 12/06/21 Rx tablet rosuvastatin [Crestor] 20 mg PO DAILY #30 tablet 09/30/20 12/06/21 Rx metoprolol succinate [Toprol XL] 25 mg PO QAM 30 Days #30 tablet 10/15/20 12/06/21 Rx allopurinol 300 mg PO DAILY 11/14/20 12/06/21 History Allergies Allergy/AdvReac Type Severity Reaction Status Date / Time No Known Allergies Allergy Verified 12/05/21 23:18 Vital Signs Vital Signs - 24 hr 12/05/21 23:07 12/06/21 00:16 12/06/21 01:03 Temperature Pulse Rate 109 H 94 102 H Respiratory Rate 14 18 19 Blood Pressure 129/93 H 127/90 Pulse Oximetry 99 98 99 12/06/21 01:41 12/06/21 03:42 12/06/21 04:00 Temperature 98.2 F Pulse Rate 56 L 52 L 58 L Respiratory Rate 16 16 Blood Pressure 117/82 112/75 Pulse Oximetry 98 98 12/06/21 06:00 12/06/21 08:00 Temperature 97.3 F L Pulse Rate 61 61 Respiratory Rate 16 Blood Pressure 110/88 Pulse Oximetry 100 Exam Narrative: Const: General: alert Orientation/consciousness: patient oriented x3 HENMT: Head: hematoma left occipital continue to monitor Eyes: Pupils: Equal, round and reactive pupils present EOM: EOMs intact bilaterally Resp: Effort & Inspection: normal respiratory effort and no retractions Auscultation: clear to auscultation bilaterally Cardio: Rate: tachycardic Rhythm: abnormal rhythm Heart sounds: no murmurs GI: GI Palp: Yes Soft to palpation, No Tenderness to palpation present (GI), No Guar
[2021-12-06 12:00] LABS: INR 1.2; Prothrombin Time 14.6 Seconds (11.1-14.7)
[2021-12-06 12:34] LABS: Hemoglobin A1C 5.9 % (<5.7)
[2021-12-06 12:39] LABS: Free T4 Free Thyroxine 0.85 ng/mL (0.78-2.19)
--- NOTE | 2021-12-06 13:36 | PM.EVENT ---
Event Note Event Note Event Note: Patient's loop recorder was interrogated and showed bradycardia and a 16 second pause. He also had some atrial fibrillation noted. Reviewed with patient. I doubt the metoprolol contributed a significantly and the patient has sinus node dysfunction causing syncope. Recommend pacemaker implant. Reviewed risks and benefits of pacemaker implant with the patient. He is interested in proceeding. He is right handed. History of right clavicular fracture as a teen. Brilinta was discontinued today. Will see if this can be performed or Saturday this week.
[2021-12-07] VITALS (7 sets, daily range): BP systolic 145–153; BP diastolic 78–85; PULSE 54–63; RESP 16–18; TEMP 36.4–36.8; O2SAT 97–100
[2021-12-07] MEDS: ACETAMINOPHEN 325 MG TABLET 650 MG PO ×2 (00:13→06:57)
[2021-12-07] MEDS: SODIUM CHLORIDE 0.9% IV 1,000 ML 125 ML IV CONT ×4 (00:14→21:18)
[2021-12-07] MEDS: HYDROcodone/acetaminophen (*CRX) 5-325 MG TABLET 1 TAB PO ×3 (08:11→21:15)
[2021-12-07] MEDS: ROSUVASTATIN 10 MG TABLET 20 MG PO (08:12)
[2021-12-07] MEDS: ASPIRIN 81 MG CHEWABLE TABLET PO (08:12)
[2021-12-07] MEDS: allopurinoL 300 MG TABLET PO (08:12)
--- NOTE | 2021-12-07 12:39 | PM.IMPN ---
Progress Note: A&P Assessment and Plan (1) Syncope: Qualifiers: Encounter type: initial encounter Code(s): R55 - Syncope and collapse Status: Acute Assessment and Plan: Had episodes of sinus bradycardia Concern for episode of AFib with RVR cardiology following metoprolol on hold Loop recorder interrogation which showed 12nd pause with some atrial fibrillation. 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 Plans for pacemaker implantation noted (3) Ischemic cardiomyopathy: Code(s): I25.5 - Ischemic cardiomyopathy Status: Acute Assessment and Plan: Status post cardiac catheterization with stent placement more than a year ago per Cardiology continue aspirin only (4) Hyperlipidemia: Qualifiers: Hyperlipidemia type: unspecified Qualified Code(s): E78.5 - Hyperlipidemia, unspecified Code(s): E78.5 - Hyperlipidemia, unspecified Status: Chronic Assessment and Plan: Continue statin (5) Hypertension: Qualifiers: Hypertension type: unspecified Qualified Code(s): I10 - Essential (primary) hypertension Code(s): I10 - Essential (primary) hypertension Status: Chronic Assessment and Plan: Monitor (6) Hematoma of scalp: Code(s): S00.03XA - Contusion of scalp, initial encounter Status: Acute Assessment and Plan: Stable continue aspirin hold Brilinta Subjective Date/time seen: 12/07/21 12:39 Interval history: HPI:55 years old male with past medical history of syncope status post loop recorder placement negative tilt-table test in the past was following Cardiology as out history of myocardial infarction more than a year ago status post stent placement on dual antiplatelet patient present to the hospital with syncopal episode today while was at work lasted for few minutes denies post episode confusion urine or stool incontinence tongue biting denies chest pain or shortness of breath patient sustained trauma to the back of the head secondary to fall had hematoma patient on dual antiplatelet cardiology was consulted as the was concern for 1 episode of AFib with RVR also patient has episodes of bradycardia sinus bradycardia metoprolol was discontinued by Cardiology also Brilinta was discontinued as patient does not require dual antiplatelet per Cardiology currently patient complains of right shoulder pain and headache no neurological loss of function 12/07/2021 doing well no new complaints. Denies any chest pain or shortness of breath. No fever chills Review of Systems Review of Systems: All systems reviewed & are unremarkable except as noted in HPI and below (HPI) Exam Narrative: Const: General: alert Orientation/consciousness, patient oriented x3 HENMT: Head: hematoma left occipital, continue to monitor Eyes: Pupils: Equal, round and reactive pupils present , EOMs intact bilaterally Resp: Effort & Inspection: normal respiratory effort and no retractions Auscultation: clear to auscultation bilaterally Cardio: Rate: tachycardic Rhythm: abnormal rhythm Heart sounds: no murmurs GI: GI Palp: Yes Soft to palpation, No Tenderness to palpation present (GI), No Guarding due to palpation present (GI) and No Rigid due to palpation Auscultation: normal bowel sounds Skin: General skin exam: normal color Neuro: General: patient oriented x3, most of extremity nonfocal Extrem: General: normal to inspection Psych: Mental Status: mental status grossly normal Affect: normal affect Objective Data Vital Signs Vital Signs: Vital Signs - 24 hr 12/06/21 14:00 12/06/21 16:00 12/06/21 20:00 Temperature 97.0 F L Pulse Rate 59
[2021-12-08] VITALS (14 sets, daily range): BP systolic 115–163; BP diastolic 66–98; PULSE 53–71; RESP 16–19; TEMP 36.9–37.8; O2SAT 95–99
[2021-12-08] MEDS: HYDROcodone/acetaminophen (*CRX) 5-325 MG TABLET 1 TAB PO ×2 (05:39→18:10)
[2021-12-08] MEDS: SODIUM CHLORIDE 0.9% IV 1,000 ML 125 ML IV CONT (05:40)
[2021-12-08 06:57] LABS: Basophils Absolute Auto 0.1 K/mm3 (0.0-0.1); Eosinophils Absolute Auto 0.2 K/mm3 (0-0.3); Hemoglobin 14.4 g/dL (14.0-18.0); Immature Granulocyte Absolute 0.02 K/mm3 (0.00-0.031); Immature Granulocyte Percent A 0.3 % (0-0.5); Lymphocytes Absolute Auto 1.61 K/mm3 (0.9-3.2); Lymphocytes Percent Auto 22.9 % (18.3-44.2); Mean Corpuscular HGB Conc 33.5 g/dl (32-36); Mean Corpuscular Hemoglobin 29.1 pg (26-34); Mean Platelet Volume 10.7 fl (7.4-10.4); Monocytes Absolute Auto 0.6 K/mm3 (0.1-0.6); Monocytes Percent Auto 8.2 % (2.6-8.5); Neutrophils Absolute Auto 4.6 K/mm3 (1.3-6.7); Neutrophils Percent Auto 64.6 % (45.5-73.1); Platelet Count Result 146 k/mm3 (150-375); Red Blood Count 4.94 M/mm3 (4.6-6.20); Red Cell Distribution Width 13.2 % (11.5-14.5)
[2021-12-08 07:16] LABS: Alanine Aminotransferase 14 U/L (6-50); Albumin Level 3.9 g/dL (3.5-5.1); Alkaline Phosphatase 32 U/L (38-126); Anion Gap 6 mmol/L (8-16); Aspartate Amino Transferase 19 U/L (17-59); Bilirubin,Total 0.5 mg/dL (0.2-1.3); Blood Urea Nitrogen 10 mg/dL (9-20); Calcium 8.4 mg/dL (8.4-10.2); Carbon Dioxide 24 mmol/L (22-30); Chloride 105 mmol/L (98-107); Estimated CRCL calculation 117 ml/min; Estimated Glomerular Filt Rate > 60; Glucose 101 mg/dL (65-110); Potassium 4.1 mmol/L (3.4-5.0); Sodium 135 mmol/L (137-145)
--- NOTE | 2021-12-08 08:09 | ECG_ITS ---
Measurements Intervals [place] Rate: 54 P: 51 CT: 161 QRS: -22 QRSD: 103 T: 37 QT: 435 QTc: 413 Interpretive Statements SINUS BRADYCARDIA INCOMPLETE RIGHT BUNDLE BRANCH BLOCK BORDERLINE ECG Electronically Signed On 12-11-2021 7:55:07 CDT by Mandeep Patel D.O.
--- NOTE | 2021-12-08 10:00 | WPDMODSED ---
Moderate Sedation Note-Pt Data Patient Data Diagnosis: Syncope with sick sinus syndrome Present Complaint: syncope Procedure to be performed/Plan: implantation of dual-chamber pacemaker Allergies Allergy/AdvReac Type Severity Reaction Status Date / Time No Known Allergies Allergy Verified 12/05/21 23:18 Home Medications Medication Instructions Recorded Confirmed Type Brilinta 90 mg PO Q12HR #60 tablet 09/30/20 12/06/21 Rx aspirin [Children's Aspirin] 81 mg PO DAILY@0800 #30 tablet 09/30/20 12/06/21 Rx nitroglycerin [Nitrostat] 0.4 mg SUBLINGUAL Q5MIN PRN #30 09/30/20 12/06/21 Rx tablet rosuvastatin [Crestor] 20 mg PO DAILY #30 tablet 09/30/20 12/06/21 Rx metoprolol succinate [Toprol XL] 25 mg PO QAM 30 Days #30 tablet 10/15/20 12/06/21 Rx allopurinol 300 mg PO DAILY 11/14/20 12/06/21 History Current Medications: Active Medications Acetaminophen (Acetaminophen 325 Mg Tablet) 650 mg PO Q4H PRN PRN Reason: Mild Pain (1-3) or Fever Last Admin: 12/07/21 06:57 Dose: 650 mg Documented by: Hydrocodone Bitart/Acetaminophen (Hydrocodone/Acetaminophen (*Crx) 5-325 Mg Tablet) 1 tab PO Q4H PRN PRN Reason: Pain Rated 4-6 Last Admin: 12/08/21 05:39 Dose: 1 tab Documented by: Al Hydrox/Mg Hydrox/Simethicone (Mag Hydrox/Al Hydrox/Simeth 30 Ml Udc) 30 ml PO QID PRN PRN Reason: Dyspepsia Allopurinol (Allopurinol 300 Mg Tablet) 300 mg PO DAILY [facility] Last Admin: 12/07/21 08:12 Dose: 300 mg Documented by: Aspirin (Aspirin 81 Mg Chewable Tablet) 81 mg PO DAILY@0800 [facility] Last Admin: 12/07/21 08:12 Dose: 81 mg Documented by: Bisacodyl (Bisacodyl 5 Mg Tablet Ec) 5 mg PO DAILY PRN PRN Reason: Constipation Sodium Chloride (Normal Saline Iv) 1,000 mls @ 125 mls/hr IV CONT .Q8H [facility] Last Admin: 12/08/21 05:40 Dose: 125 mls/hr Documented by: Morphine Sulfate (Morphine Sulfate (*Crx) 2 Mg/Ml Inj) 2 mg IV PUSH Q4H PRN PRN Reason: For pain 7-10 Nitroglycerin (Nitroglycerin Sl 0.4 Mg Tablet) 0.4 mg SUBLINGUAL Q5MIN PRN PRN Reason: Chest Pain Rosuvastatin Calcium (Rosuvastatin 10 Mg Tablet) 20 mg PO DAILY [facility] Last Admin: 12/07/21 08:12 Dose: 20 mg Documented by: Sedation/Anesthesia: No previous sedation/anesthesia problems (including family history). [facility] Past Medical History Medical History Coronary artery disease Hyperlipidemia Hypertension Surgical History Surgical History Stented coronary artery Family History Family History Grandparent Diabetes mellitus Family history of lung cancer Acute myocardial infarction Social History Social History Smoking packs per day: 1.5 Smoking cigarettes per day: 30.0 Years smoked: 12 Smoking pack-years: 18.00 Smoking status: Former smoker Tobacco type: cigarettes Second hand tobacco smoke exposure: No Smoking end date: 07/22/94 Additional smoking assessment comments: 1 ppd quit 25 years ago Alcohol intake: never Drinks per week: 18 Substance use: current Substance use type: marijuana Gender identity (if verbalized by the patient): Male Spiritual care concerns: No Mod Sed Physical Exam Physical Exam Pre Procedural Exam: Normal: Appearance, Nose, Neck, Throat, Airway, Lungs, Heart Size, Heart Rate, Heart Rhythm, Neuro Exam and Extremities Hours since solid foods: 12 Hours since liquid intake: 12 Mallampati Classification: class II Internal Medicine - PN: Obj Da Vital Signs Vital Signs: Vital Signs - 24 hr 12/07/21 14:00 12/07/21 16:00 12/07/21 20:00 Temperature 36.4 C Pulse Rate 61 59 L 58 L Respiratory Rate 16 Blood Pressure 153/78 H Pulse Oximetry 100 12/07/21 21:48 12/08/21 00:00 12/08/21 04:00 Temperature 36.8 C Pulse Rate 56 L 56 L 53 L Respiratory R
--- NOTE | 2021-12-08 10:01 | WPDCARDPROC ---
Cardiac Cath Procedure Note Date of procedure:: 12/08/21 Performing physician:: Chuck Horne MD Indication:: syncope with sick sinus syndrome Brief clinical history:: this is a 55-year-old man with a history of coronary disease and previous infarction he underwent stenting of the LAD and right coronary arteries last year. He has had no ischemic symptoms since then. He has had several syncopal episodes and a loop recorder was implanted for this reason. He entered the hospital with another syncopal episode and a long asystolic pause was noted on the device for that reason dual-chamber pacemaker device was implanted. He has been withdrawn from anti-platelet therapy for 48 hours prior to this procedure. Procedure Procedure performed:: Dual-chamber pacemaker implant Sedation/Medication given:: fentanyl 50 mg Versed 2 mg Access site:: left subclavian vein Estimated blood loss:: 30 cc Procedure note:: patient was brought to the cardiac catheterization lab in the postabsorptive state the left anterior chest wall was prepped and draped in the usual fashion. Anesthesia was given with 1% lidocaine infiltrated locally. An incision in the clavicle from the midclavicular line to the deltopectoral groove. Sharp and blunt dissection was used to separate the subcutaneous tissue down to the prepectoral fascia. The patient had moderate amount of oozing of these tissues which was controlled with electrocautery. This was anticipated because of recent dual anti-platelet therapy. Following this a blunt dissection was used to create a pacemaker pocket inferior to the incision along the fascial plane. This was then packed with an antibiotic-soaked 4 x 4. Attention was then turned venous access. Two separate punctures were made using the is supplied peel-away sheath kits in the left subclavian vein guidewires were advanced into the venous circulation to the level of the right atrium. The peel-away sheaths were used to place the pacemaker be detailed below into the venous circulation. The sheaths were then peeled away. Following this attention was turned to positioning of the ventricular lead. The straight stylet was removed and fashioned into a J with a 3 cc syringe. This was used to steer lead through the RVOut into the pulmonary artery. This was then placed with another straight stylet was withdrawn and placed in the right ventricular apex. Fixation screw was deployed and pacing and sensing performance was documented to be favorable. A 10 volts was showed no evidence of extracardiac stimulation. Following this attention was turned to positioning the atrial lead. The straight stylet was removed and a preformed atrial J was placed into the lead. This was used to position the lead in the right atrial appendage the fixation screw was deployed and upon withdrawal of the stylet the lead tip was fixed into position. Appropriate pacing and sensing performance was again demonstrated and there was no extracardiac stimulation with 10 volt stimulus. Following this the leads were sutured to the base of the pocket using the suture sleeves on the leads. The 2-0 silk ties were used for this. The retained sponge was then removed from the pocket and the newly created pocket was irrigated with antibiotic infused saline. Following this the pacemaker generator was connected to the leads using the torque wrench and the entire assembly was placed into the newly created pocket. This was then closed in layers using 3-0 Vicryl in an interrupted fashion for the subcutaneous tissue and 4-0 Vicryl in a running subcuticular fashion for the skin. Wound was dressed with an Aquacel dressing left arm was placed in an immobilizer he was taken to the holding area for post pacemaker implant recovery. Procedure was well tolerated and uncomplicated. Findings:: The patient received a [employer] [place] [employer] dual-chamber pacemaker model L111 serial no [id number]. device is programmed in DDD lower rate limi
--- NOTE | 2021-12-08 10:08 | ECG_ITS ---
Measurements Intervals [place] Rate: 56 P: 44 KS: 155 QRS: -19 QRSD: 95 T: 31 QT: 434 QTc: 420 Interpretive Statements SINUS BRADYCARDIA BORDERLINE ECG Electronically Signed On 12-08-2021 11:53:25 CDT by Mandeep Patel D.O.
--- NOTE | 2021-12-08 11:08 | PC.NURSE ---
1110 pt back from surgery.
[2021-12-08] MEDS: ROSUVASTATIN 10 MG TABLET 20 MG PO (11:15)
[2021-12-08] MEDS: allopurinoL 300 MG TABLET PO (11:15)
[2021-12-08] MEDS: ASPIRIN 81 MG CHEWABLE TABLET PO (11:15)
[2021-12-08] MEDS: SODIUM CHLORIDE 0.9% IV 1,000 ML 50 ML IV CONT (11:28)
--- NOTE | 2021-12-08 15:25 | PM.IMPN ---
Progress Note: A&P Assessment and Plan (1) Syncope: Qualifiers: Encounter type: initial encounter Code(s): R55 - Syncope and collapse Status: Acute Assessment and Plan: Had episodes of sinus bradycardia Concern for episode of AFib with RVR cardiology following metoprolol on hold Loop recorder interrogation which showed 12nd pause with some atrial fibrillation. 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 (3) Ischemic cardiomyopathy: Code(s): I25.5 - Ischemic cardiomyopathy Status: Acute Assessment and Plan: Status post cardiac catheterization with stent placement more than a year ago per Cardiology continue aspirin only (4) Hyperlipidemia: Qualifiers: Hyperlipidemia type: unspecified Qualified Code(s): E78.5 - Hyperlipidemia, unspecified Code(s): E78.5 - Hyperlipidemia, unspecified Status: Chronic Assessment and Plan: Continue statin (5) Hypertension: Qualifiers: Hypertension type: unspecified Qualified Code(s): I10 - Essential (primary) hypertension Code(s): I10 - Essential (primary) hypertension Status: Chronic Assessment and Plan: Monitor (6) Hematoma of scalp: Code(s): S00.03XA - Contusion of scalp, initial encounter Status: Acute Assessment and Plan: Stable continue aspirin hold Brilinta Subjective Date/time seen: 12/08/21 15:25 Interval history: HPI:55 years old male with past medical history of syncope status post loop recorder placement negative tilt-table test in the past was following Cardiology as out history of myocardial infarction more than a year ago status post stent placement on dual antiplatelet patient present to the hospital with syncopal episode today while was at work lasted for few minutes denies post episode confusion urine or stool incontinence tongue biting denies chest pain or shortness of breath patient sustained trauma to the back of the head secondary to fall had hematoma patient on dual antiplatelet cardiology was consulted as the was concern for 1 episode of AFib with RVR also patient has episodes of bradycardia sinus bradycardia metoprolol was discontinued by Cardiology also Brilinta was discontinued as patient does not require dual antiplatelet per Cardiology currently patient complains of right shoulder pain and headache no neurological loss of function 12/07/2021 doing well no new complaints. Denies any chest pain or shortness of breath. No fever chills 12/08/2021 seen after pacemaker placement. Sore in his chest wall but denies any other complaint no shortness of breath nausea vomiting Review of Systems Review of Systems: All systems reviewed & are unremarkable except as noted in HPI and below (HPI) Exam Narrative: Const: General: alert Orientation/consciousness, patient oriented x3 HENMT: Head: hematoma left occipital, continue to monitor Eyes: Pupils: Equal, round and reactive pupils present , EOMs intact bilaterally Resp: Effort & Inspection: normal respiratory effort and no retractions Auscultation: clear to auscultation bilaterally Chest wall: Pacemaker in-situ with dressing on Cardio: Rate: regular Rhythm: sinusrhythm Heart sounds: no murmurs GI: GI Palp: Yes Soft to palpation, No Tenderness to palpation present (GI), No Guarding due to palpation present (GI) and No Rigid due to palpation Auscultation: normal bowel sounds Skin: General skin exam: normal color Neuro: General:
[2021-12-08] MEDS: MORPHINE SULFATE (*CRX) 2 MG/ML INJ IV PUSH (16:29)
[2021-12-08 17:15] LABS: Glucose Point of Care 105 mg/dl (65-105)
[2021-12-08 20:58] LABS: Glucose Point of Care 102 mg/dl (65-105)
[2021-12-09] VITALS: PULSE 74
[2021-12-09] MEDS: HYDROcodone/acetaminophen (*CRX) 5-325 MG TABLET 1 TAB PO (01:27)
[2021-12-09 03:53] VITALS: BP 105/64; PULSE 58; RESP 16; TEMP 36.9; O2SAT 98
[2021-12-09 04:00] VITALS: PULSE 61
[2021-12-09 06:19] LABS: Basophils Absolute Auto 0.1 K/mm3 (0.0-0.1); Basophils Percent Auto 0.7 % (0.2-1.2); Eosinophils Absolute Auto 0.2 K/mm3 (0-0.3); Eosinophils Percent Auto 1.8 % (0-4.4); Hematocrit 43.9 % (42.0-52.0); Immature Granulocyte Absolute 0.02 K/mm3 (0.00-0.031); Immature Granulocyte Percent A 0.2 % (0-0.5); Lymphocytes Absolute Auto 1.65 K/mm3 (0.9-3.2); Lymphocytes Percent Auto 19.5 % (18.3-44.2); Mean Corpuscular HGB Conc 34.2 g/dl (32-36); Mean Corpuscular Hemoglobin 29.4 pg (26-34); Mean Corpuscular Volume 85.9 fl (80-100); Mean Platelet Volume 10.8 fl (7.4-10.4); Monocytes Absolute Auto 0.8 K/mm3 (0.1-0.6); Monocytes Percent Auto 9.7 % (2.6-8.5); Neutrophils Absolute Auto 5.8 K/mm3 (1.3-6.7); Neutrophils Percent Auto 68.1 % (45.5-73.1); Platelet Count Result 142 k/mm3 (150-375); Red Blood Count 5.11 M/mm3 (4.6-6.20); Red Cell Distribution Width 13.2 % (11.5-14.5); White Blood Count 8.5 K/mm3 (4.5-10.0)
[2021-12-09 06:39] LABS: Alanine Aminotransferase 14 U/L (6-50); Albumin Level 4.1 g/dL (3.5-5.1); Alkaline Phosphatase 32 U/L (38-126); Anion Gap 9 mmol/L (8-16); Aspartate Amino Transferase 21 U/L (17-59); Bilirubin,Total 0.7 mg/dL (0.2-1.3); Blood Urea Nitrogen 12 mg/dL (9-20); Calcium 8.5 mg/dL (8.4-10.2); Carbon Dioxide 25 mmol/L (22-30); Chloride 102 mmol/L (98-107); Estimated CRCL calculation 102 ml/min; Estimated Glomerular Filt Rate > 60; Glucose 108 mg/dL (65-110); Potassium 4.1 mmol/L (3.4-5.0); Sodium 136 mmol/L (137-145)
[2021-12-09] MEDS: MORPHINE SULFATE (*CRX) 2 MG/ML INJ IV PUSH (08:13)
[2021-12-09] MEDS: ASPIRIN 81 MG CHEWABLE TABLET PO (08:13)
[2021-12-09] MEDS: allopurinoL 300 MG TABLET PO (08:13)
[2021-12-09] MEDS: ROSUVASTATIN 10 MG TABLET 20 MG PO (08:13)
[2021-12-09 08:27] VITALS: O2SAT 98
--- NOTE | 2021-12-09 11:18 | PM.PNCARD ---
Progress Note: A&P Additional Plan 55-year-old man with coronary artery disease previous stenting to his LAD and right coronary artery last year. He also has sick sinus syndrome that was recently identified on his loop recorder. Fortunately a dual-chamber pacemaker was implanted uneventfully yesterday he seems to be doing well this morning and appears to be a good candidate for discharge. I will arrange for follow-up next week in the office to remove the dressing. He is instructed to keep the dressing clean and dry until then. Chuck Horne MD [facility] Subjective Date/time seen: Date of service: 12/09/21 11:18 Interval history: Follow-up visit in this 55-year-old man with: History of recurrent syncopal episodes severe sick sinus syndrome identified with long asystolic pause noted on his loop recorder. Patient underwent implantation of permanent dual-chamber pacemaker yesterday uneventfully. Other than some soreness at the incisional site and some discomfort at the back of his head where he took a fall he has no complaints this morning. Hopeful to be discharged. Exam Const: General: comfortable and no acute distress Other: Pleasant healthy-appearing 55-year-old man comfortable no distress this morning HENMT: Mouth: Yes moist mucous membranes Eyes: Sclera: sclerae normal Pupils: Equal, round and reactive pupils present Neck: Neck: supple and no JVD Resp: Effort & Inspection: normal respiratory effort Auscultation: clear to auscultation bilaterally Cardio: Rate: regular rate Rhythm: regular rhythm Other: No murmur no gallop no rub GI: Auscultation: normal bowel sounds Skin: General skin exam: normal color Neuro: Cranial nerves: Yes Equal, round and reactive pupils present Cognition (Neuro): normal cognition Extrem: General: normal to inspection Objective Data Vital Signs Vital Signs: Vital Signs - 24 hr 12/08/21 12:00 12/08/21 14:00 12/08/21 16:00 Temperature 37.1 C Pulse Rate 55 L 66 71 Respiratory Rate 18 Blood Pressure 122/83 Pulse Oximetry 99 12/08/21 18:00 12/08/21 19:53 12/08/21 20:00 Temperature 36.9 C Pulse Rate 66 65 61 Respiratory Rate 16 18 Blood Pressure 115/79 Pulse Oximetry 97 99 12/08/21 23:53 12/09/21 00:00 12/09/21 03:53 Temperature 37.8 C H 36.9 C Pulse Rate 59 L 74 58 L Respiratory Rate 16 16 Blood Pressure 120/66 105/64 Pulse Oximetry 98 98 12/09/21 04:00 12/09/21 08:27 Temperature Pulse Rate 61 Respiratory Rate Blood Pressure Pulse Oximetry 98 Intake/Output Intake/Output: Intake & Output 12/06/21 12/07/21 12/08/21 12/09/21 23:59 23:59 23:59 23:59 Intake Total 3220 5500 1670 920 Output Total 1025 1000 3900 Balance 2195 4500 -2230 920 Meds/Results Medications: Active Medications Generic Name Dose Route Start Last Admin Trade Name Freq PRN Reason Stop Dose Admin Acetaminophen 650 mg 12/06/21 11:06 12/07/21 06:57 Acetaminophen 325 Mg Tablet PO 650 mg Q4H PRN Administration Mild Pain (1-3) or Fever Hydrocodone Bitart/Acetaminophen 1 tab 12/06/21 10:13 12/09/21 01:27 Hydrocodone/Acetaminophen (*Crx) 5-325 Mg Tablet PO 1 tab Q4H PRN Administration Pain Rated 4-6 Al Hydrox/Mg Hydrox/Simethicone 30 ml 12/06/21 11:06 Mag Hydrox/Al Hydrox/Simeth 30 Ml Udc PO QID PRN Dyspepsia Allopurinol 300 mg 12/06/21 09:00 12/09/21 08:13 Allopurinol 300 Mg Tablet PO 300 mg DAILY [facility] Administration Aspirin 81 mg 12/06/21 08:00 12/09/21 08:13 Aspirin 81 Mg Chewable Tablet PO 81 mg DAILY@0800 [facility] Administration Bisacodyl 5 mg 12/06/21 11:06 Bisacodyl 5 Mg Tablet Ec PO DAILY PRN Constipation Morphine Sulfate 2 mg 12/06/21 11:06 12/09/21 08:13 Morphine Sulfate (*Crx) 2 Mg/Ml Inj IV PUSH 2 mg Q4H PRN Administration For pain 7-10 Nitroglycerin 0.4 mg 12/06/21 08:37 Nitroglycerin Sl 0.4 Mg Tablet SUBLINGUAL Q5MIN PRN
--- NOTE | 2021-12-09 11:59 | PM.DS ---
DS: Admitting Diagnosis Discharge Date 12/09/2021 Admitting Diagnosis Syncope DS: Discharge Diagnosis Discharge Diagnosis (1) Syncope: Qualifiers: Encounter type: initial encounter Code(s): R55 - Syncope and collapse Status: Acute Assessment and Plan: Had episodes of sinus bradycardia Concern for episode of AFib with RVR cardiology following metoprolol on hold Loop recorder interrogation which showed 12 2nd pause with some atrial fibrillation. 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 (3) Ischemic cardiomyopathy: Code(s): I25.5 - Ischemic cardiomyopathy Status: Acute Assessment and Plan: Status post cardiac catheterization with stent placement more than a year ago per Cardiology continue aspirin only (4) Hyperlipidemia: Qualifiers: Hyperlipidemia type: unspecified Qualified Code(s): E78.5 - Hyperlipidemia, unspecified Code(s): E78.5 - Hyperlipidemia, unspecified Status: Chronic Assessment and Plan: Continue statin (5) Hypertension: Qualifiers: Hypertension type: unspecified Qualified Code(s): I10 - Essential (primary) hypertension Code(s): I10 - Essential (primary) hypertension Status: Chronic Assessment and Plan: Monitor (6) Hematoma of scalp: Code(s): S00.03XA - Contusion of scalp, initial encounter Status: Acute Assessment and Plan: Stable continue aspirin He is over year since his stenting and hence Brilinta discontinued DS: Summary Hospital Course Hospital Course: See above Time Spent with Patient Time attestation: Total time spent providing and/or coordinating discharge services: 45 minutes Exam Narrative: Const: General: alert Orientation/consciousness, patient oriented x3 HENMT: Head: hematoma left occipital, continue to monitor Eyes: Pupils: Equal, round and reactive pupils present , EOMs intact bilaterally Resp: Effort & Inspection: normal respiratory effort and no retractions Auscultation: clear to auscultation bilaterally Chest wall: Pacemaker in-situ with dressing on Cardio: Rate: regular Rhythm: sinusrhythm Heart sounds: no murmurs GI: GI Palp: Yes Soft to palpation, No Tenderness to palpation present (GI), No Guarding due to palpation present (GI) and No Rigid due to palpation Auscultation: normal bowel sounds Skin: General skin exam: normal color Neuro: General: patient oriented x3, most of extremity nonfocal Extrem: General: normal to inspection Psych: Mental Status: mental status grossly normal Affect: normal affect DS: Data Data Completed and Pending Completed studies during hospitalization: Exam Type: CA echo doppler color flow Study Info Indications - CAD S/P STENT SYNCOPE Complete two-dimensional, color flow and Doppler transthoracic echocardiogram is performed. Summary 1. Complete two-dimensional, color flow and Doppler transthoracic echocardiogram is performed. 2. Normal left ventricular size and thickness. Normal left ventricular systolic function with no segmental wall motion abnormalities, ejection fraction 60-65 %. Normal diastolic function. 3. Left atrial chamber dimension is mildly enlarged. 4. No significant valve disease. 5. Normal sinus rhythm. Left Ventricle Left ventricular chamber dimension is normal. Left ventricular systolic function is normal, estimated at 60-65%. There is no increased l
[2021-12-09 12:00] VITALS: PULSE 66
== END 2021-12-09 12:45 | disposition home or self-care (01) | DRG 244 ==
LOC: ANHED 12-06 03:44 → ANH3MEDSUR 12-06 08:43
PROVIDERS: Internal Medicine; Specialist; Admitting Provider Internal Medicine; Emergency Provider General Practice; PCP Student in an Organized Health Care Education/Training Program; Visit Provider Internal Medicine
PROC: 0JH606Z Insertion of Pacemaker, Dual Chamber into Chest Subcutaneous Tissue and Fascia, Open Approach (ICD-10-PCS; CPT 33208; principal; 2021-12-08 08:30)
DX: I49.5 Sick sinus syndrome (principal); I48.0 Paroxysmal atrial fibrillation; R55 Syncope and collapse; I25.5 Ischemic cardiomyopathy; E78.5 Hyperlipidemia, unspecified; I10 Essential (primary) hypertension; S00.03XA Contusion of scalp, initial encounter; Z87.891 Personal history of nicotine dependence; W19.XXXA Unspecified fall, initial encounter; Z79.899 Other long term (current) drug therapy; Z79.82 Long term (current) use of aspirin
CPT/HCPCS: 33208; 36415; 70450; 71045; 71046; 72125; 73030; 80053; 80307; 81003; 82948; 83036; 83605; 83735; 83880; 84439; 84484; 85025; 85610; 85730; 93005; 93306; 96360; 96361; 99285; A9270; C1785; C1898; C9803; G0378; J0690; J2250; J2270; J3010; J7030; J7040; U0003; U0005

== ENCOUNTER → 2022-09-06 09:13 | Outpatient (CLI) | payer BC, SELFPAY ==
--- NOTE | ~2022-09-06 | US_ITS ---
EXAMINATION: US right upper quadrant DATE: 09/06/2022 09:48 INDICATION: Right upper quadrant pain TECHNIQUE: Multiple grayscale and Doppler ultrasound images of the abdomen were obtained. COMPARISON: None available FINDINGS: The head and body of the pancreas are normal. The pancreatic tail is obscured by bowel gas. The liver is normal with normal echogenicity and echotexture. No surface nodularity. Normal hepatope yolette flow in the main portal vein. The gallbladder is normal with no abnormal wall thickening, pericho lecystic fluid or stones. The normal common bile duct measures 4 mm. There was no sonographic Conde sign. IMPRESSION: 1. Normal sonographic study of the gallbladder. Reviewed, dictated and finalized at location A. S CUTTING MACHINE OPERATOR
== END ==
PROVIDERS: PCP Student in an Organized Health Care Education/Training Program; Visit Provider Student in an Organized Health Care Education/Training Program
DX: R10.11 Right upper quadrant pain (principal)
CPT/HCPCS: 76705

== ENCOUNTER 2023-05-01 12:08 | Outpatient (CLI) | payer BC, SELFPAY ==
--- NOTE | ~2023-05-01 | XR_ITS ---
Clinical Indication: Pacemaker malfunction PA and lateral views of the chest: Comparison: 12/09/2021 Findings: The lungs are clear, without evidence of focal consolidation or pleural effusion. Cardiome diastinal silhouette is unchanged. Pacemaker device and loop recorder are unchanged. Bones and soft t issues are unremarkable. Impression: Clear lungs. Pacemaker device and cardiac loop recorder are unchanged. Reviewed, dictated and finalized at location M. Impression: Clear lungs. Pacemaker device and cardiac loop recorder are unchanged.
== END 2023-05-01 12:09 | disposition home or self-care (01) ==
PROVIDERS: PCP Student in an Organized Health Care Education/Training Program; Visit Provider Specialist
DX: R55 Syncope and collapse (principal); I46.9 Cardiac arrest, cause unspecified; I47.29 Other ventricular tachycardia; T82.110A Breakdown (mechanical) of cardiac electrode, initial encounter; Z95.0 Presence of cardiac pacemaker
CPT/HCPCS: 71046

== ENCOUNTER 2024-05-06 08:20 | Outpatient (CLI) | payer OTHER, SELFPAY ==
--- NOTE | ~2024-05-06 | CT_ITS ---
CT Scan of the Chest without Contrast: Clinical Indication: Chronic cough Technique: Contiguous sections were acquired throughout the chest without intravenous contrast. Dose reduction technique was used on this scan by utilizing automated exposure control and iterative recon struction technique. The dose-length product (DLP) was 447.39 mGy-cm. Findings: There is no evidence of any significant mediastinal, hilar or axillary lymphadenopathy. Extensive cor onary artery calcifications are present. Pacemaker device and loop recorder present. There is no evidence of pleural or pericardial effusion. The lungs are clear. No pulmonary nodules or infiltrates are noted. Images through the upper abdomen reveal no abnormalities. Impression: No pulmonary abnormalities seen. Reviewed, dictated and finalized at location . Impression: No pulmonary abnormalities seen.
== END 2024-05-06 08:21 | disposition home or self-care (01) ==
PROVIDERS: PCP Student in an Organized Health Care Education/Training Program; Visit Provider Student in an Organized Health Care Education/Training Program
DX: R05.3 Chronic cough (principal)
CPT/HCPCS: 71250